=== PATIENT | male | born 1990 | race Caucasian/White ===

== ENCOUNTER 2017-10-07 07:15 | Inpatient (IN) | payer BC ==
[2017-10-07 07:44] LABS: #Eosinphils 0.1 thou/uL (0.0-0.7); #Lymphocytes 1.6 thou/uL (1.20-3.40); #Monocytes 0.6 thou/uL (0.11-0.59); #Neutrophils 8.7 thou/uL (1.40-6.50); %Basophils 0.3 % (0.0-1.0); %Eosinophils 0.6 % (0.0-10.0); %Lymphocytes 14.4 % (21.0-51.0); %Monocytes 5.7 % (0.0-10.0); Hematocrit 49.8 % (42.0-52.0); Mean Platelet Volume 7.1 fL (7.4-10.4); Red Blood Cell (RBC) Count 5.58 mill/uL (4.70-6.10)
[2017-10-07 08:03] LABS: ALT (SGPT) 27 U/L (8-55); AST (SGOT) 16 U/L (5-34); Alkaline Phosphatase 125 U/L (40-150); Anion Gap 21 mmol/L (10-20); BUN (Urea Nitrogen) 20 mg/dL (8.9-20.6); Bilirubin, Total 0.8 mg/dL (0.2-1.2); Calc. Creatinine Clearance 0 mL/min (70-130); Calcium 9.9 mg/dL (7.8-10.44); Carbon Dioxide 17 mmol/L (22-29); Chloride 97 mmol/L (98-107); Estimated GFR-MDRD 53; Globulin 3.8 g/dL (2.4-3.5); Protein, Total 8.1 g/dL (6.0-8.3)
[2017-10-07] MEDS ORDERED: Insulin Regular 300 UNITS/3 ML VIAL ONE (08:23)
[2017-10-07] MEDS ORDERED: Potassium Chloride 20 MEQ TAB ONE (08:28)
[2017-10-07] MEDS ORDERED: NS 0.9% w/ 40 MEQ KCL 1,000 ML IV SCH (08:30)
[2017-10-07 08:41] LABS: Bilirubin Negative (Negative); Blood, Urine Negative (Negative); Glucose, Urine (Dipstick) >=1000 mg/dL (Negative); Ketone, Urine 80 mg/dL (Negative); Nitrite Negative (Negative); Protein, Urine (Dipstick) Negative (Neg-Trace); Urobilinogen 0.2 mg/dL (0.2-1.0)
[2017-10-07 09:39] LABS: Troponin I Less than 0.010 ng/mL (< 0.028)
--- NOTE | 2017-10-07 09:53 | HP ---
DATE OF ADMISSION: 10/07/2017 PRIMARY CARE PHYSICIAN: In [place]. He is unable to recall the name of the primary care physicchristopher sandi. CHIEF COMPLAINT: Nausea, vomiting. HISTORY OF PRESENT ILLNESS: Patient is a 26-year-old male with type 1 diabetes who presented to the emergency room with above complaints. The patient woke up at 3:00 a.m. with nausea and vomiting. He had a total of 3 episodes since then. The vomitus was nonbilious and did not contain blood. He denies any other complaints. He felt that he may be in DKA for which he took his morning dose of 20 Lantus along with 10 units of short-acting insulin. He had generalized body cramping as well. For this reason, he presented to the emergency room. No chest pain, palpitations, lightheadedness, dizziness, focal neurologic deficit, fever, chil ls, dysuria, hematuria or urgency reported. Patient has chronic diarrhea, which has not worsened rec ently. No sick contacts reported. In the emergency room, his initial vital signs showed temperature 97.9, respirations 16, pulse rate o f 114 with blood pressure of 117/76 with O2 saturation 99% on room air. His anion gap was 21 with bi carbonate 17 with ketones of 5.96. He received 3 liters IV fluid bolus in the emergency room. Initi al blood glucose was 478. PAST MEDICAL HISTORY: 1. Diabetes mellitus type 1. 2. Asthma, mild intermittent. 3. History of DKA in the past, the last being in March of this year. PAST SURGICAL HISTORY: Reviewed with the patient and none. ALLERGIES: CODEINE. CURRENT HOME MEDICATIONS: 1. Lantus 20 units b.i.d. with sliding scale. 2. Lisinopril 2.5 mg daily. FAMILY HISTORY: Maternal grandmother with colon cancer. SOCIAL HISTORY: He denies any smoking, alcohol or drug use. REVIEW OF SYSTEMS: The following complete review of systems was negative, unless otherwise mentioned in the HPI or below: Constitutional: Weight loss or gain, ability to conduct usual activities. Skin: Rash, itching. Eyes: Double vision, pain. ENT/Mouth: Nose bleeding, neck stiffness, pain, tenderness. Cardiovascular: Palpitations, dyspnea on exertion, orthopnea. Respiratory: Shortness of breath, wheezing, cough, hemoptysis, fever or night sweats. Gastrointestinal: Poor appetite, abdominal pain, heartburn, nausea, vomiting, constipation, or diarr hea. Genitourinary: Urgency, frequency, dysuria, nocturia. Musculoskeletal: Pain, swelling. Neurologic/Psychiatric: Anxiety, depression. Allergy/Immunologic: Skin rash, bleeding tendency. PHYSICAL EXAMINATION: VITAL SIGNS: As discussed above. GENERAL: A 26-year-old male in no apparent distress. Feels generally weak. HEENT: Head is atraumatic, normocephalic. Sclerae are anicteric. Dry mucous membrane, no oral lesi on. NECK: Supple, no JVD appreciated. No carotid bruit. LUNGS: Clear to auscultation bilaterally. HEART: S1, S2 present. Regular rate and rhythm. No murmur, rubs, or gallops appreciated. ABDOMEN: Soft, nontender, bowel sounds present. EXTREMITIES: No edema or calf tenderness. NEUROLOGIC: Grossly nonfocal, moves all four extremities. PSYCHIATRY: Alert, awake, oriented x3. SKIN: Warm and dry. LYMPH NODES: No palpable lymph nodes in the neck. PERIPHERAL VASCULAR: Radial pulses palpable bilaterally. MUSCULOSKELETAL: No joint swelling or tenderness. LABORATORY FINDINGS AND IMAGIN. CBC showed WBC 11 with hemoglobin 16.8, platelet of 220. 2. Chemistries showed sodium 131, potassium 3.8, chloride 97, bicarbonate 17, BUN of 20, creatinine 1.59, glucose of 478. LFTs in normal range. Ketones 5.96. 3. Urinalysis was negative for WBC or bacteria. It showed ketones. 4. EKG by my review showed sinus rhythm without any ST-T wave changes. IMPRESSION: 1. Diabetic ketoacidosis. Partially treated. The patient already took his Lantus 20 units along wi th 10 units of short-acting insulin earlier this morning. 2. Dehydration with acute kidney injury. 3. Chronic diarrhea. 4. Metabolic acidosis secondary to diabetic ketoacidosis. 5. CODEINE allergy. 6. History of diabetes mellitus type 1. 7. Nausea and vomiting, probably secondary to diabetic ketoacidosis. PLAN: The patient will be monitored on the medical floor. We will continue IV fluids. We will do A ccu-Cheks every 4 hourly with moderate sliding scale. Continue Lantus. Start with clear liquid diet and advance accordingly. We will repeat labs and ketones later today. Plan of care was discussed with the patient in detail. He stated understanding.
[2017-10-07 10:39] VITALS: BMI 21.7
[2017-10-07] MEDS ORDERED: Acetaminophen 325 MG TAB PO PRN (10:47)
[2017-10-07] MEDS ORDERED: hydrALAZINE 20 MG/ML VIAL SLOW IVP PRN (10:47)
[2017-10-07] MEDS ORDERED: Ondansetron ODT 4 MG TAB PO PRN (10:47)
[2017-10-07] MEDS ORDERED: Dextrose 5% in Water 1,000 ML IV PRN (10:47)
[2017-10-07] MEDS ORDERED: Ondansetron HCl/PF 4 MG/2 ML Vial IVP PRN (10:47)
[2017-10-07] MEDS ORDERED: Dextrose 50% Abboject 50 ML SYRINGE SLOW IVP PRN (10:47)
[2017-10-07] MEDS ORDERED: cloNIDine 0.1 MG TAB PO PRN (10:47)
[2017-10-07 10:57] LABS: Magnesium 2.2 mg/dL (1.6-2.6); Phosphorus 2.4 mg/dL (2.3-4.7)
[2017-10-07] MEDS: Insulin Regular 300 UNITS/3 ML VIAL SC PRN ×4 (12:14→23:56)
[2017-10-07] MEDS: NS 0.9% w/ 20 MEQ KCL 1,000 ML/1,000 ML BAG IV SCH ×2 (12:14→17:54)
[2017-10-07] MEDS ORDERED: FLU VACC QS2017-18 36 mo. & older 0.5 ML SYRINGE IM ONE (14:00)
[2017-10-07 16:39] LABS: Anion Gap 11 mmol/L (10-20); BUN (Urea Nitrogen) 13 mg/dL (8.9-20.6); Calc. Creatinine Clearance 109 mL/min (70-130); Calcium 8.1 mg/dL (7.8-10.44); Carbon Dioxide 21 mmol/L (22-29); Chloride 109 mmol/L (98-107); Estimated GFR-MDRD 87
[2017-10-07] MEDS: Sodium Chloride 0.45% 1,000 ML IV SCH ×2 (17:20→23:56)
[2017-10-07] MEDS: Famotidine 20 MG TAB PO SCH (20:37)
[2017-10-07] MEDS: Insulin Detemir 100 UNITS/ML 15 UNITS in Pre-Filled Syringe 1 EACH SC SCH (21:51)
[2017-10-08 05:47] VITALS: TEMP 97.6
[2017-10-08 06:08] LABS: #Eosinphils 0.2 thou/uL (0.0-0.7); #Lymphocytes 2.8 thou/uL (1.20-3.40); #Monocytes 0.4 thou/uL (0.11-0.59); #Neutrophils 2.6 thou/uL (1.40-6.50); %Basophils 0.8 % (0.0-1.0); %Eosinophils 3.3 % (0.0-10.0); %Lymphocytes 46.6 % (21.0-51.0); %Monocytes 6.9 % (0.0-10.0); Hematocrit 39.5 % (42.0-52.0); Mean Platelet Volume 6.5 fL (7.4-10.4); Red Blood Cell (RBC) Count 4.42 mill/uL (4.70-6.10)
[2017-10-08 06:31] LABS: Anion Gap 6 mmol/L (10-20); BUN (Urea Nitrogen) 9 mg/dL (8.9-20.6); Calc. Creatinine Clearance 135 mL/min (70-130); Calcium 8.4 mg/dL (7.8-10.44); Carbon Dioxide 25 mmol/L (22-29); Chloride 110 mmol/L (98-107); Estimated GFR-MDRD Greater than 90; Magnesium 1.6 mg/dL (1.6-2.6); Phosphorus 2.7 mg/dL (2.3-4.7)
[2017-10-08] MEDS: Sodium Chloride 0.45% 1,000 ML IV SCH (06:47)
[2017-10-08 07:59] VITALS: BP 96/54
[2017-10-08] MEDS ORDERED: Insulin Regular 300 UNITS/3 ML VIAL SC PRN (08:00)
[2017-10-08] MEDS ORDERED: Potassium Chloride 20 MEQ TAB PO SCH (08:00)
[2017-10-08] MEDS ORDERED: Sodium Chloride 0.45% 1,000 ML IV SCH (08:01)
[2017-10-08] MEDS: Famotidine 20 MG TAB PO SCH (08:49)
[2017-10-08] MEDS: Insulin Detemir 100 UNITS/ML 15 UNITS in Pre-Filled Syringe 1 EACH SC SCH (08:50)
--- NOTE | 2017-10-08 10:22 | DIS ---
DATE OF DISCHARGE: 10/08/2017 DISCHARGE DISPOSITION: Home. FOLLOWUP: Follow up with primary care physician, Dr. Lorrie Julien in [place]. Base met in 1 week is recommended. Primary care physician is advised to follow. INPATIENT CONSULTANTS: None. The patient was seen and examined on the day of discharge. SIGNIFICANT LABORATORIES: Ketones on admission 5.96, at discharge was 0.28. Anion gap on admission was 21, at discharge is 6, bicarbonate on admission was 17, at discharge 25. BRIEF HOSPITAL COURSE: The patient is a 26-year-old male with diabetes mellitus type 1, presented to the hospital with nausea and vomiting. His workup was consistent with diabetic ketoacidosis. He olsen d taken his morning insulin (20 units of Lantus with sliding scale). Due to partially treated diabet ic ketoacidosis the decision was made to manage him on the medical floor with IV fluids as well as a subcutaneous insulin q.4h. Over the last 24 hours, his nausea, vomiting, and acidosis has completely resolved. His anion gap today it is normal with bicarbonate in normal range. He also had some hypo kalemia that has been replaced. He appears stable for discharge. He was advised to monitor his bloo d sugar closely and not to miss any insulin dose. The diabetic ketoacidosis probably happened due to missed dose of Lantus the day before admission. FINAL DIAGNOSES: 1. Diabetic ketoacidosis, resolved. 2. Dehydration with acute kidney injury. His creatinine on admission was 1.59, at discharge is 0.84 . 3. Hypokalemia, replaced. 4. Chronic diarrhea. Primary care physician is advised to follow. Stool for ova and parasite was o rdered; however, the patient never had a bowel movement. 5. Metabolic acidosis secondary to diabetic ketoacidosis. 6. History of diabetes mellitus type 1. 7. Nausea and vomiting secondary to diabetic ketoacidosis. 8. CODEINE allergy. 9. No changes in his home medications were made. He will continue with Lantus 20 units b.i.d. with sliding scale as well as lisinopril 2.5 mg daily. The plan of care was discussed with the patient in detail. He stated understanding.
== END 2017-10-08 10:47 | disposition home or self-care (01) | DRG 638 ==
LOC: ERS 07:15 → ONC 08:42
PROVIDERS: ADMIT Internal Medicine; ATTEND Internal Medicine
DX: E10.10 Type 1 diabetes mellitus with ketoacidosis without coma (principal); N17.9 Acute kidney failure, unspecified; E86.0 Dehydration; E87.6 Hypokalemia; K52.9 Noninfective gastroenteritis and colitis, unspecified; J45.20 Mild intermittent asthma, uncomplicated; Z79.4 Long term (current) use of insulin; Z23 Encounter for immunization
CPT/HCPCS: 36415; 36416; 80048; 80053; 81003; 82010; 83735; 84100; 84484; 85025; 93005; 96361; 96374; J1815

== ENCOUNTER 2017-10-14 21:14 | Inpatient (IN) | payer BC ==
[2017-10-14 21:59] LABS: Base Excess-Venous -10.1 mmol/L (-30.0-30.0); Bicarbonate (HCO3v) 14.1 mmol/L (1.0-85.0); CO2 Tension (PvCO2) 27.8 mmHg (41.0-51.0); Calcium, Ionized 1.15 mmol/L (1.12-1.32); Hemoglobin - Calc 18.1 g/dL (12.0-18.0); O2 Tension (PvO2) 22.2 mmHg (35.0-45.0); Potassium 3.8 mmol/L (3.4-4.7); pH (Venous) 7.314 (7.35-7.45); vO2 Saturation-calc 34.2 % (0.0-100.0)
--- NOTE | 2017-10-14 22:01 | RAD ---
PORTABLE CHEST: 10/14/17 HISTORY: Chest pain. COMPARISON: None. Heart size and mediastinum are within normal limits. The lungs are clear of infiltrates. No significa nt bony findings. IMPRESSION: No active intrathoracic disease. POS: [facility]
[2017-10-14 22:15] LABS: #Lymphocytes 1.7 thou/uL (1.20-3.40); #Monocytes 0.7 thou/uL (0.11-0.59); #Neutrophils 6.1 thou/uL (1.40-6.50); %Basophils 0.2 % (0.0-1.0); %Eosinophils 0.5 % (0.0-10.0); %Lymphocytes 20.1 % (21.0-51.0); %Monocytes 7.8 % (0.0-10.0); %Neutrophils 71.5 % (42.0-75.0); Hemoglobin 17.6 g/dL (14.0-18.0); Mean Corpuscular HGB CONC 34.2 g/dL (32.0-36.0); Mean Corpuscular Hemoglobin 29.7 pg (27.0-31.0); Mean Corpuscular Volume 86.9 fl (80.0-94.0); Mean Platelet Volume 6.6 fL (7.4-10.4); Platelet Count 252 thou/uL (130-400); RBC Distribution Width 11.3 % (11.5-14.5); Red Blood Cell (RBC) Count 5.92 mill/uL (4.70-6.10); White Blood Cell (WBC) Count 8.6 thou/uL (4.8-10.8)
[2017-10-14 22:37] LABS: ALT (SGPT) 12 U/L (8-55); AST (SGOT) 8 U/L (5-34); Albumin 4.4 g/dL (3.5-5.0); Alkaline Phosphatase 94 U/L (40-150); Anion Gap 25 mmol/L (10-20); BUN (Urea Nitrogen) 22 mg/dL (8.9-20.6); Bilirubin, Total 1.3 mg/dL (0.2-1.2); Calc. Creatinine Clearance 0 mL/min (70-130); Carbon Dioxide 15 mmol/L (22-29); Chloride 94 mmol/L (98-107); Estimated GFR-MDRD 48; Globulin 3.9 g/dL (2.4-3.5); Glucose 358 mg/dL (70-105); Potassium 3.8 mmol/L (3.5-5.1); Protein, Total 8.3 g/dL (6.0-8.3); Sodium 130 mmol/L (136-145)
[2017-10-14 22:55] LABS: Bilirubin Negative (Negative); Blood, Urine Negative (Negative); Clarity CLEAR (Clear); Glucose, Urine (Dipstick) >=1000 mg/dL (Negative); Leukocyte Negative (Negative); Nitrite Negative (Negative); Protein, Urine (Dipstick) Negative (Neg-Trace); Specific Gravity, Urine 1.034 (1.002-1.036); Urobilinogen 0.2 mg/dL (0.2-1.0)
[2017-10-14] MEDS ORDERED: Insulin Regular 300 UNITS/3 ML VIAL ONE (22:58)
[2017-10-15] MEDS ORDERED: Acetaminophen 500 MG TAB ONE (01:36)
[2017-10-15 01:53] LABS: ALT (SGPT) 10 U/L (8-55); AST (SGOT) 6 U/L (5-34); Albumin 3.5 g/dL (3.5-5.0); Alkaline Phosphatase 67 U/L (40-150); Anion Gap 20 mmol/L (10-20); BUN (Urea Nitrogen) 21 mg/dL (8.9-20.6); Bilirubin, Total 0.8 mg/dL (0.2-1.2); Calc. Creatinine Clearance 0 mL/min (70-130); Calcium 8.9 mg/dL (7.8-10.44); Carbon Dioxide 15 mmol/L (22-29); Chloride 103 mmol/L (98-107); Estimated GFR-MDRD 67; Globulin 2.9 g/dL (2.4-3.5); Glucose 244 mg/dL (70-105); Potassium 3.4 mmol/L (3.5-5.1); Protein, Total 6.4 g/dL (6.0-8.3); Sodium 135 mmol/L (136-145)
[2017-10-15] MEDS ORDERED: Ketorolac Tromethamine 30 MG/ML VIAL ONE (01:53)
[2017-10-15 03:47] VITALS: BMI 19.5
[2017-10-15] MEDS ORDERED: Dextrose 5% in Water 1,000 ML IV PRN ×2 (04:12→04:17)
[2017-10-15] MEDS ORDERED: Insulin Regular 300 UNITS/3 ML VIAL SC PRN (04:12)
[2017-10-15] MEDS ORDERED: Dextrose 50% Abboject 50 ML SYRINGE IVP PRN ×2 (04:12→04:17)
[2017-10-15] MEDS ORDERED: Sodium Chloride 0.9% 1,000 ML IV SCH (04:15)
[2017-10-15] MEDS ORDERED: HumaLOG 300 UNITS/3 ML VIAL SC PRN (04:17)
[2017-10-15] MEDS ORDERED: Insulin Detemir 100 UNITS/ML 10 UNITS in Pre-Filled Syringe 1 EACH SC SCH (04:30)
[2017-10-15] MEDS ORDERED: Acetaminophen 325 MG TAB PO PRN (07:31)
[2017-10-15] MEDS ORDERED: Artificial Tears 18 DROP/0.9 ML EA EYE PRN (07:31)
[2017-10-15] MEDS ORDERED: Loperamide HCl 2 MG CAP PO PRN (07:31)
[2017-10-15] MEDS ORDERED: Sodium Chloride 0.65% Nasal 44 ML BOT EA NARE PRN (07:31)
[2017-10-15] MEDS ORDERED: Chloraseptic Spray 180 ml Bottle PO PRN (07:31)
[2017-10-15] MEDS ORDERED: Milk Of Magnesia 30 ML UDCUP PO PRN (07:31)
[2017-10-15] MEDS ORDERED: Ondansetron HCl/PF 4 MG/2 ML Vial IVP PRN (07:31)
[2017-10-15] MEDS ORDERED: Diabetic Tussin 200 MG/10 ML UDCUP PO PRN (07:31)
[2017-10-15] MEDS ORDERED: hydrALAZINE 20 MG/ML VIAL SLOW IVP PRN (07:31)
[2017-10-15] MEDS ORDERED: Loratadine 10 MG TAB PO PRN (07:31)
[2017-10-15] MEDS ORDERED: Zolpidem Tartrate 5 MG TAB PO PRN (07:31)
[2017-10-15] MEDS ORDERED: Eucerin (Mineral Oil/Petrolatum,White) 30 gm Jar TOP PRN (07:31)
[2017-10-15] MEDS ORDERED: Senokot 8.6 MG TAB PO PRN (07:31)
[2017-10-15] MEDS ORDERED: Ondansetron ODT 4 MG TAB PO PRN (07:31)
[2017-10-15] MEDS ORDERED: Mag-Al 1200 mg/1200 mg/30 ML UDCUP PO PRN (07:31)
[2017-10-15] MEDS ORDERED: Non-Formulary Item 1 EACH (Insulin Glargine,Hum.Rec.Anlog 20 UNIT) SQ SCH (09:00)
[2017-10-15] MEDS: Enoxaparin Sodium 40 MG/0.4 ML SYRINGE SC SCH (09:06)
[2017-10-15] MEDS: Lisinopril 2.5 MG TAB PO SCH (09:06)
[2017-10-15] MEDS: Famotidine 20 MG TAB PO SCH ×2 (09:06→21:05)
[2017-10-15] MEDS: Insulin Detemir 100 UNITS/ML 20 UNITS in Pre-Filled Syringe 1 EACH SC SCH ×2 (09:22→21:05)
[2017-10-15 13:00] LABS: Bilirubin Small (Negative); Blood, Urine Negative (Negative); Clarity CLEAR (Clear); Glucose, Urine (Dipstick) >=1000 mg/dL (Negative); Leukocyte Negative (Negative); Nitrite Negative (Negative); Protein, Urine (Dipstick) Trace mg/dL (Neg-Trace); Specific Gravity, Urine 1.034 (1.002-1.036)
[2017-10-15 13:05] LABS: Bacteria/HPF None Seen HPF (None Seen); Hyaline Casts/LPF 0-3 HYALINE CAST LPF (0-3 Hyaline); Pathc Cast-AUWi Flag 0.27 (0-2.49); RBC/HPF 0-3 HPF (0-3); Squamous Epithelial None Seen HPF (0-3); WBC/HPF 0-3 HPF (0-3)
--- NOTE | 2017-10-15 13:19 | HP ---
PRIMARY CARE PHYSICIAN: [place] call admission. REASON FOR ADMISSION: Nausea, vomiting, flu-like illness, hyperglycemia, ketosis. HISTORY OF PRESENT ILLNESS: A 26-year-old male with a history of diabetes type 1 on insulin, who was recently admitted in our hospital for DKA. He was admitted on 10/07/2017 and he was discharged home on 10/08/2017. The patient came back again to the emergency room, because he was having generalized body ache, headache, nausea, vomiting and he was not able to keep anything down for the last 3 days. He was also having runny nose, sore throat. He denies any fever or chills, but he reports fatigue and shortness of breath. In the emergency room, routine blood tests showed ketosis. He also appeared clinically dehydrated. He was given IV fluid and subsequently he was admitted to medical floor overnight. When I saw this patient in the morning, at that time, patient was comfortable and he was still having body ache and headache, but no fever. He was able to hold breakfast. He was not having any shortne ss of breath or chest pain. REVIEW OF SYSTEMS: The following complete review of systems was negative, unless otherwise mentioned in the HPI or below: Constitutional: Weight loss or gain, ability to conduct usual activities. Skin: Rash, itching. Eyes: Double vision, pain. ENT/Mouth: Nose bleeding, neck stiffness, pain, tenderness. Cardiovascular: Palpitations, dyspnea on exertion, orthopnea. Respiratory: Shortness of breath, wheezing, cough, hemoptysis, fever or night sweats. Gastrointestinal: Poor appetite, abdominal pain, heartburn, nausea, vomiting, constipation, or diarr hea. Genitourinary: Urgency, frequency, dysuria, nocturia. Musculoskeletal: Pain, swelling. Neurologic/Psychiatric: Anxiety, depression. Allergy/Immunologic: Skin rash, bleeding tendency. Please see my HPI for pertinent positives and negatives. All other review of system reviewed and neg ative except as mentioned in the HPI. PAST MEDICAL HISTORY: Diabetes type 1, mild intermittent asthma, history of DKA. PAST SURGICAL HISTORY: Reviewed and negative. PAST PSYCHIATRIC HISTORY: Reviewed and negative. ALLERGIES: CODEINE gives nausea. CURRENT HOME MEDICATIONS: The patient was discharged home on following medications: NovoLog insulin as per sliding scale, Lantus 20 units subcu b.i.d., lisinopril 2.5 mg p.o. daily. FAMILY HISTORY: Maternal grandmother with a history of colon cancer. No strong family history of co ronary artery disease or stroke. SOCIAL HISTORY: Patient lives at home with the family. No history of tobacco, alcohol or illicit dr ug abuse. EMERGENCY ROOM COURSE: Patient was given Toradol 50 mg, Tylenol 1 gram, Novolin R 6 units and 2 lite r IV fluid. PHYSICAL EXAMINATION: VITAL SIGNS: On arrival, blood pressure 109/80, pulse 112, respiratory rate 16, temperature 98.0, sa turation 98% on room air, weight 63.5 kilograms. GENERAL: Patient appears poorly groomed, no obvious acute distress. HEAD: Normocephalic, atraumatic. EYES: Pupils round, reactive to light. Extraocular muscles intact. ENT: Somewhat dry appearing mucous membranes. No oral lesions. No pharyngeal erythema, no exudate. NECK: Supple, no JVD, no thyromegaly, no carotid bruit, no jugular venous distention. LUNGS: Clear to auscultation without any rhonchi or rales. CARDIAC: S1, S2 regular without any murmur. ABDOMEN: Soft, bowel sounds present, nontender, nondistended. No organomegaly, no mass, no suprapub ic tenderness. BACK: Unremarkable. No CVA tenderness. EXTREMITIES: Upper extremity, passive movement of all joints are normal. Lower extremity, no edema . Good peripheral pulsation. SKIN: No skin rash. HEMATOLOGICAL: No lymphadenopathy. NEUROLOGIC: Nonfocal examination. The patient moves all 4 limbs. Plantar bilateral flexor. PSYCHIATRIC: Normal affect. IMAGING: EKG showing sinus tachycardia, biatrial enlargement, nonspecific ST-T changes. Chest x-ray based on my review, no acute cardiopulmonary process. SIGNIFICANT LABORATORY DATA: 1. WBC 8.6, hemoglobin 17.6, platelet 252. VBG: pH 7.31, bicarbonate 14.1, CO2 27.8, O2 22.2. 2. BMP shows sodium 130, potassium 3.8, chloride 94, carbon dioxide 15, anion gap 25, BUN 22, creati nine 1.73, glucose 358, calcium 10.0. 3. LFT: AST 8, ALT 12, alkaline phosphatase 94, albumin 4.4. Lactic acid 2.0. Urinalysis showing glucosuria and ketonuria. Serum ketones 8.68. ASSESSMENT: 1. Acute kidney failure due to prerenal etiology secondary to dehydration, because of nausea and vom iting and poor p.o. tolerance. 2. Hyponatremia likely due to dehydration as well as pseudohyponatremia from hyperglycemia. 3. Hyperglycemia associated with type 1 diabetes, because of inability to take long-acting insulin b ecause the patient was not tolerating p.o. intake and that is why he was not taking by himself insuli n. 4. Mild anion gap acidosis, likely due to ketosis. 5. Ketosis likely due to poor p.o. intolerance as well as hyperglycemia. 6. Generalized body ache, nausea, vomiting, viral syndrome. Influenza screen negative. PLAN: 1. Full admission to medical floor. Patient will need IV fluid and NS at 100 mL per hour. We will start diabetic diet. We will continue with Levemir insulin and Humalog insulin as per sliding scale per protocol. We will also resume lisinopril 2.5 mg p.o. daily. We will repeat labs tomorrow. We w ill check respiratory virus panel to rule out any other viral etiologies. 2. Deep venous thrombosis prophylaxis. Lovenox 40 mg subcutaneously daily. 3. Gastrointestinal prophylaxis. Pepcid 20 mg p.o. b.i.d. 4. Code status: The patient is FULL CODE. Patient does not have any surrogate decision maker. The patient will need symptomatic treatment, hydration and monitoring of labs and adjustment of insulin regimen.
[2017-10-15] MEDS: NS 0.9% w/ 20 MEQ KCL 1,000 ML/1,000 ML BAG IV SCH (15:04)
[2017-10-16] MEDS: NS 0.9% w/ 20 MEQ KCL 1,000 ML/1,000 ML BAG IV SCH ×3 (00:22→18:23)
[2017-10-16 04:41] LABS: ALT (SGPT) 8 U/L (8-55); AST (SGOT) 8 U/L (5-34); Albumin 3.1 g/dL (3.5-5.0); Alkaline Phosphatase 62 U/L (40-150); Anion Gap 12 mmol/L (10-20); BUN (Urea Nitrogen) 9 mg/dL (8.9-20.6); Bilirubin, Total 0.5 mg/dL (0.2-1.2); Calc. Creatinine Clearance 107 mL/min (70-130); Calcium 8.5 mg/dL (7.8-10.44); Carbon Dioxide 22 mmol/L (22-29); Chloride 104 mmol/L (98-107); Estimated GFR-MDRD Greater than 90; Globulin 2.6 g/dL (2.4-3.5); Glucose 72 mg/dL (70-105); Potassium 3.1 mmol/L (3.5-5.1); Protein, Total 5.7 g/dL (6.0-8.3); Sodium 135 mmol/L (136-145)
[2017-10-16 04:47] LABS: #Eosinphils 0.2 thou/uL (0.0-0.7); #Lymphocytes 2.2 thou/uL (1.20-3.40); #Monocytes 0.8 thou/uL (0.11-0.59); #Neutrophils 4.9 thou/uL (1.40-6.50); %Basophils 0.2 % (0.0-1.0); %Eosinophils 2.6 % (0.0-10.0); %Lymphocytes 26.6 % (21.0-51.0); %Monocytes 9.6 % (0.0-10.0); Hemoglobin 14.4 g/dL (14.0-18.0); Mean Corpuscular Hemoglobin 31.1 pg (27.0-31.0); Mean Corpuscular Volume 86.5 fl (80.0-94.0); Mean Platelet Volume 5.8 fL (7.4-10.4); Platelet Count 199 thou/uL (130-400); RBC Distribution Width 11.3 % (11.5-14.5); Red Blood Cell (RBC) Count 4.63 mill/uL (4.70-6.10); White Blood Cell (WBC) Count 8.1 thou/uL (4.8-10.8)
[2017-10-16 07:56] LABS: Magnesium 1.6 mg/dL (1.6-2.6)
[2017-10-16] MEDS ORDERED: Potassium Phosphate 30 MMOL in Sodium Chloride 0.9% 500 ML IVPB SCH (08:00)
[2017-10-16] MEDS ORDERED: Potassium Chloride 20 MEQ TAB PO SCH (08:00)
[2017-10-16] MEDS: Famotidine 20 MG TAB PO SCH ×2 (09:04→21:29)
[2017-10-16] MEDS: Lisinopril 2.5 MG TAB PO SCH (09:14)
[2017-10-16] MEDS: Enoxaparin Sodium 40 MG/0.4 ML SYRINGE SC SCH (09:14)
[2017-10-16] MEDS: Insulin Detemir 100 UNITS/ML 20 UNITS in Pre-Filled Syringe 1 EACH SC SCH (09:37)
--- NOTE | 2017-10-16 10:27 | PDOC.PN ---
- Subjective Encounter Start Date: 10/16/17 Encounter Start Time: 09:40 still feels weak, has sore throat, no fever, nausea+, poor apetitie - Objective Resuscitation Status: Resuscitation Status FULL:Full Resuscitation MAR Reviewed: Yes Vital Signs & Weight: Vital Signs (12 hours) Temp Pulse Resp BP BP Pulse Ox 10/16/17 09:14 80 119/76 10/16/17 07:59 98.3 F 80 20 119/76 98 10/16/17 04:00 98.1 F 87 16 117/77 99 10/16/17 00:00 98.0 F 89 16 122/76 100 Weight Weight 140 lb Result Diagrams: 10/16/17 04:12 10/16/17 04:12 Additional Labs: Accuchecks 10/15/17 10/15/17 10/15/17 16:12 11:21 03:27 POC Glucose 138 H 222 H 288 H Phys Exam - Physical Examination Constitutional: NAD HEENT: PERRLA, moist MMs, sclera anicteric Neck: no JVD, supple Respiratory: no wheezing, no rales, no rhonchi Cardiovascular: RRR, no significant murmur, no rub Gastrointestinal: soft, non-tender, no distention, positive bowel sounds Musculoskeletal: no edema, pulses present Neurological: non-focal, normal sensation, moves all 4 limbs Psychiatric: normal affect, A&O x 3 Skin: no rash, normal turgor Dx/Plan (1) Acute kidney failure Status: Resolved (2) Dehydration Code(s): E86.0 - DEHYDRATION Status: Acute Comment: (3) Flu-like symptoms Status: Acute (4) Hypokalemia Code(s): E87.6 - HYPOKALEMIA Status: Acute (5) Hypophosphatemia Code(s): E83.39 - OTHER DISORDERS OF PHOSPHORUS METABOLISM Status: Acute (6) Ketosis Code(s): E88.89 - OTHER SPECIFIED METABOLIC DISORDERS Status: Acute (7) Nausea and vomiting Code(s): R11.2 - NAUSEA WITH VOMITING, UNSPECIFIED Status: Acute (8) Diabetes type 1, uncontrolled Code(s): E10.65 - TYPE 1 DIABETES MELLITUS WITH HYPERGLYCEMIA Status: Chronic Qualifiers: - Plan cont current plan of care * medication reviewed as below * symptomatic treatment * replace potassium phosphate * reduce levemir dose * will reassess tomorrow * if he eats good and ambulates well, then will consider discharge. Review of Systems - Review of Systems Constitutional: weakness. negative: fever, chills, sweats, malaise, other ENT: Throat Pain. negative: Ear Pain, Ear Discharge, Nose Pain, Nose Discharge , Nose Congestion, Mouth Pain, Mouth Swelling, Throat Swelling, Other Respiratory: negative: Cough, Dry, Shortness of Breath, Hemoptysis, SOB with Excertion, Pleuritic Pain, Sputum, Wheezing Cardiovascular: negative: chest pain, palpitations, orthopnea, paroxysmal nocturnal dyspnea, edema, light headedness, other Gastrointestinal: Nausea. negative: Vomiting, Abdominal Pain, Diarrhea, Constipation, Melena, Hematochezia, Other Genitourinary: negative: Dysuria, Frequency, Incontinence, Hematuria, Retention , Other Musculoskeletal: negative: Neck Pain, Shoulder Pain, Arm Pain, Back Pain, Hand Pain, Leg Pain, Foot Pain, Other Skin: negative: Rash, Lesions, Ryan, Bruising, Other - Medications/Allergies Allergies/Adverse Reactions: Allergies Allergy/AdvReac Type Severity Reaction Status Date / Time codeine Allergy Verified 10/15/17 04:00 Medications: Current Medications Acetaminophen (Tylenol) 650 mg PO Q4H PRN PRN Reason: Headache/Fever or Mild Pain Al Hydroxide/Mg Hydroxide (Maalox) 15 ml PO Q4H PRN PRN Reason: Heartburn or Indigestion Artificial Tears (Tears Naturale) 0 drop EA EYE PRN PRN PRN Reason: Dry Eyes Dextrose/Water (Dextrose 50%) 25 gm IVP PRN PRN PRN Reason: HYPOGLYCEMIA PROTOCOL Enoxaparin Sodium (Lovenox) 40 mg SC 0900 [facility] Last Admin: 10/16/17 09:14 Dose: Not Given Famotidine (Pepcid) 20 mg PO BID [facility] Last Admin: 10/16/17 09:04 Dose: 20 mg Glucagon (Glucagon) 1 mg IM PRN PRN PRN Reason: HYPOGLYCEMIA PROTOCOL Guaifenesin (Robitussin Sf) 200 mg PO Q4H PRN PRN Reason: Cough Hydralazine HCl (Apresoline) 10 mg SLOW IVP Q4H PRN PRN Reason: Systolic BP > 180 Dextrose/Water (D5w) 1,000 mls @ 0 mls/hr IV INF PRN; As Directed PRN Reason: HYPOGLYCEMIA PROTOCOL Insulin Detemir 20 units/ (Miscellaneous Medication) 0.2 mls @ 0 mls/hr SC BID [facility] Last Admin: 10/16/17 09:37 Dose: Not Given Potassium Chloride/Sodium Chloride (Ns 0.9% W/ 20 Meq Kcl) 1,000 ml in 1,000 mls @ 100 mls/hr IV .Q10H [facility] Last Admin: 10/16/17 10:18 Dose: 1,000 mls Potassium Phosphate 30 mmol/ (Sodium Chloride) 510 mls @ 83.3 mls/hr IVPB 0800 [facility] Stop: 10/16/17 15:00 Last Admin: 10/16/17 09:01 Dose: 510 mls Insulin Human Lispro (Humalog) 0 units SC .MODERATE SLIDING SC PRN; Protocol PRN Reason: MODERATE SLIDING SCALE Lisinopril (Zestril) 2.5 mg PO DAILY [facility] Last Admin: 10/16/17 09:14 Dose: 2.5 mg Loperamide HCl (Imodium) 2 mg PO PRN PRN PRN Reason: Diarrhea/Loose Stools Last Admin: 10/16/17 10:17 Dose: 2 mg Loratadine (Claritin) 10 mg PO DAILYPRN PRN PRN Reason: Sinus Symptoms Magnesium Hydroxide (Milk Of Magnesium) 30 ml PO DAILYPRN PRN PRN Reason: Constipation Mineral Oil/White Petrolatum (Eucerin Cream) 0 gm TOP BIDPRN PRN PRN Reason: Dry Skin Ondansetron HCl (Zofran Odt) 4 mg PO Q6H PRN PRN Reason: Nausea/Vomiting Ondansetron HCl (Zofran) 4 mg IVP Q6H PRN PRN Reason: Nausea/Vomiting Phenol (Chloraseptic [place] 180 Ml Bot) 0 ml PO PRN PRN PRN Reason: Sore Throat Senna (Senokot) 2 tab PO HSPRN PRN PRN Reason: Constipation Sodium Chloride (Flush - Normal Saline) 10 ml IVF PRN PRN PRN Reason: Saline Flush Sodium Chloride ([place] Nasal [place] 0.65%) 0 ml EA NARE QIDPRN PRN PRN Reason: Nasal Congestion Zolpidem Tartrate (Ambien) 5 mg PO HSPRN PRN PRN Reason: Insomnia
[2017-10-16] MEDS ORDERED: Insulin Detemir 100 UNITS/ML 10 UNITS in Pre-Filled Syringe 1 EACH SC SCH (12:00)
[2017-10-16] MEDS: Insulin Detemir 100 UNITS/ML 10 UNITS in Pre-Filled Syringe 1 EACH SC SCH (21:28)
[2017-10-17] MEDS: NS 0.9% w/ 20 MEQ KCL 1,000 ML/1,000 ML BAG IV SCH (04:03)
[2017-10-17 08:06] LABS: Anion Gap 9 mmol/L (10-20); BUN (Urea Nitrogen) 7 mg/dL (8.9-20.6); Calc. Creatinine Clearance 103 mL/min (70-130); Calcium 8.9 mg/dL (7.8-10.44); Carbon Dioxide 26 mmol/L (22-29); Chloride 104 mmol/L (98-107); Estimated GFR-MDRD Greater than 90; Glucose 214 mg/dL (70-105); Phosphorus 2.8 mg/dL (2.3-4.7); Potassium 3.3 mmol/L (3.5-5.1); Sodium 136 mmol/L (136-145)
[2017-10-17 08:37] VITALS: BP 112/72; TEMP 98.1
[2017-10-17] MEDS ORDERED: Potassium Chloride 20 MEQ TAB PO SCH (09:00)
[2017-10-17] MEDS: Famotidine 20 MG TAB PO SCH (09:57)
[2017-10-17] MEDS: Insulin Detemir 100 UNITS/ML 10 UNITS in Pre-Filled Syringe 1 EACH SC SCH (09:57)
[2017-10-17] MEDS: Lisinopril 2.5 MG TAB PO SCH (09:57)
[2017-10-17] MEDS: Enoxaparin Sodium 40 MG/0.4 ML SYRINGE SC SCH (09:57)
--- NOTE | 2017-10-17 11:00 | DIS ---
PRIMARY CARE PHYSICIAN: Meera Hernandez. DATE OF ADMISSION: 10/15/2017 DATE OF DISCHARGE: 10/17/2017 DISCHARGE DISPOSITION: Home. PRIMARY DISCHARGE DIAGNOSES: 1. Acute kidney failure, prerenal, improved. 2. Nausea and vomiting, resolved. 3. Ketosis due to starvation from nausea and vomiting as well as diabetes. 4. Hypokalemia. 5. Hypophosphatemia. 6. Hyponatremia. 7. Dehydration. 8. Flu-like symptoms. SECONDARY DISCHARGE DIAGNOSIS: Diabetes type 1. PRIMARY PROCEDURE/OPERATION: None. RADIOLOGICAL INVESTIGATION: Chest x-ray was normal. SIGNIFICANT LABORATORY DATA: WBC 8.1, hemoglobin 14.4, platelets 199. Sodium 136, potassium 3.3, BU N 7, creatinine 0.98, calcium 8.9, phosphorus 2.8, magnesium 1.6. LFTs normal. Urinalysis showed gl ucosuria, ketonuria, serum ketones 1.55. Respiratory panel, PCR negative. Influenza A and B negativ e. DISCHARGE MEDICATIONS: The patient will resume all his previous medication, 1. NovoLog insulin as per sliding scale. 2. Lantus insulin 20 units subcu b.i.d. 3. Lisinopril 2.5 mg p.o. daily. CONTRAINDICATIONS: None. CODE STATUS: FULL CODE. INPATIENT CONSULTANTS: None. ALLERGIES: CODEINE. DISCHARGE PLAN: Post hospital, the patient will follow up with primary care physician in 1 week. HOSPITAL COURSE: A 26-year-old male with the above mentioned medical problem, who was admitted by me . Please see my HPI for further details. The patient was having flu-like symptoms including upper r espiratory infection with runny nose, sore throat, nausea and vomiting. The patient was not tolerati ng p.o. and that is why he was not taking insulin and that is why he had hyperglycemia. He had ketos is because he was not eating well because of nausea and vomiting. We admitted in the hospital to pre vent diabetic ketoacidosis. His VBG was not suggestive of any full-blown DKA, but he was having ania y DKA and that is why we admitted in hospital. We hydrated with IV fluid. We checked an influenza s creen, which was normal. Virus panel was also negative. All cultures remain negative. The patient had abnormal electrolytes with low sodium, low potassium, phosphorus, and magnesium, which was replac ed while in hospital. Today, the patient is tolerating p.o. well. He has no symptoms, all symptoms, why he presented to [facility] is completely controlled. He is knowing about his diabetes because it is a long history o f diabetes and he knows what to do about blood sugar. He already has all insulin at home. I provide d patient education about compliance with insulin and diet. This patient is at high risk for recurre nt admission. Today, the patient is seen and examined at bedside. All other review of systems reviewed with him an d negative. He was completely comfortable and eating his breakfast. PHYSICAL EXAMINATION: VITAL SIGNS: Temperature 98.1, pulse 81, respiratory rate 16, saturation 99%, blood pressure 112/72, and weight 140 pounds. GENERAL: The patient is currently alert, awake, in no acute distress. HEAD: Normocephalic, atraumatic. LUNGS: Clear to auscultation without any rhonchi or rales. CARDIAC: S1 and S2, regular, without any murmurs. ABDOMEN: Soft and benign without any tenderness. EXTREMITIES: No edema. NEUROLOGIC: Nonfocal examination. Overall, the patient is medically stable for discharge today.
== END 2017-10-17 11:38 | disposition home or self-care (01) | DRG 638 ==
LOC: ERS 21:14 → T4-A 10-15 01:40
PROVIDERS: ADMIT Internal Medicine; ATTEND Internal Medicine
DX: E10.10 Type 1 diabetes mellitus with ketoacidosis without coma (principal); N17.9 Acute kidney failure, unspecified; E87.1 Hypo-osmolality and hyponatremia; E83.39 Other disorders of phosphorus metabolism; Z79.4 Long term (current) use of insulin; E86.0 Dehydration; E87.6 Hypokalemia; F17.220 Nicotine dependence, chewing tobacco, uncomplicated; T73.0XXA Starvation, initial encounter; X58.XXXA Exposure to other specified factors, initial encounter
CPT/HCPCS: 36415; 36416; 71010; 80048; 80053; 81001; 81003; 82010; 82330; 82803; 83605; 83735; 84100; 85025; 87633; 87798; 93005; 96361; 96374; 96375; J1650; J1815; J1885; J2405; J7050

== ENCOUNTER 2018-01-04 18:45 | Inpatient (IN) | payer BC ==
[2018-01-04] MEDS ORDERED: Ondansetron HCl/PF 4 MG/2 ML Vial ONE (18:59)
[2018-01-04 19:23] LABS: Bicarbonate (HCO3v) 8.5 mmol/L (1.0-85.0); CO2 Tension (PvCO2) 23.1 mmHg (41.0-51.0); Calcium, Ionized 1.14 mmol/L (1.12-1.32); Hemoglobin - Calc 17.6 g/dL (12.0-18.0); O2 Tension (PvO2) 46.5 mmHg (35.0-45.0); Potassium 4.8 mmol/L (3.4-4.7); T. Carbon Dioxide 9.2 mmol/L (1.0-85.0); pH (Venous) 7.172 (7.35-7.45); vO2 Saturation-calc 72.1 % (94-98)
[2018-01-04 19:28] LABS: #Basophils 0.1 thou/uL (0.0-0.2); #Eosinphils 0.1 thou/uL (0.0-0.7); #Lymphocytes 1.2 thou/uL (1.20-3.40); #Monocytes 0.3 thou/uL (0.11-0.59); #Neutrophils 8.8 thou/uL (1.40-6.50); %Basophils 0.7 % (0.0-1.0); %Eosinophils 0.5 % (0.0-10.0); %Lymphocytes 11.5 % (21.0-51.0); %Monocytes 2.8 % (0.0-10.0); %Neutrophils 84.4 % (42.0-75.0); Hemoglobin 16.4 g/dL (14.0-18.0); Mean Corpuscular HGB CONC 33.5 g/dL (32.0-36.0); Mean Corpuscular Hemoglobin 30.3 pg (27.0-31.0); Mean Corpuscular Volume 90.5 fl (80.0-94.0); Mean Platelet Volume 6.7 fL (7.4-10.4); Platelet Count 260 thou/uL (130-400); RBC Distribution Width 11.3 % (11.5-14.5); White Blood Cell (WBC) Count 10.4 thou/uL (4.8-10.8)
[2018-01-04] MEDS ORDERED: Insulin Regular 300 UNITS/3 ML VIAL ONE (19:43)
[2018-01-04] MEDS ORDERED: Insulin Regular 100 units/100 ml in NS IVPB ONE (19:45)
[2018-01-04 19:52] LABS: ALT (SGPT) 25 U/L (8-55); AST (SGOT) 15 U/L (5-34); Albumin 4.6 g/dL (3.5-5.0); Alkaline Phosphatase 111 U/L (40-150); BUN (Urea Nitrogen) 14 mg/dL (8.9-20.6); Bilirubin, Total 0.7 mg/dL (0.2-1.2); Calc. Creatinine Clearance 0 mL/min (70-130); Calcium 9.9 mg/dL (7.8-10.44); Chloride 105 mmol/L (98-107); Estimated GFR-MDRD 49; Globulin 3.7 g/dL (2.4-3.5); Glucose 384 mg/dL (70-105); Lipase 13 U/L (8-78); Magnesium 1.8 mg/dL (1.6-2.6); Potassium 4.9 mmol/L (3.5-5.1); Protein, Total 8.3 g/dL (6.0-8.3); Sodium 136 mmol/L (136-145)
[2018-01-04 20:06] LABS: Carbon Dioxide Less than 8 mmol/L (22-29)
[2018-01-04 20:11] LABS: Bilirubin Negative (Negative); Blood, Urine Negative (Negative); Clarity CLEAR (Clear); Glucose, Urine (Dipstick) >=1000 mg/dL (Negative); Leukocyte Negative (Negative); Nitrite Negative (Negative); Protein, Urine (Dipstick) Trace mg/dL (Neg-Trace); Specific Gravity, Urine 1.025 (1.002-1.036); Urobilinogen 0.2 mg/dL (0.2-1.0); pH, Urine 5.5 (5.0-9.0)
--- NOTE | 2018-01-04 20:22 | RAD ---
PORTABLE UPRIGHT FRONTAL CHEST RADIOGRAPH: Date: 01-04-18 Comparison: 10-14-17 History: History Of diabetic keto acidosis, hyperglycemia, nausea, vomiting. FINDINGS: Heart and mediastinal contours are unremarkable. There is no pneumothorax, pleural fluid, focal conso lidation, or alveolar edema. IMPRESSION: No acute findings. POS: [facility]
[2018-01-04] MEDS ORDERED: Morphine 4 MG/ML VIAL ONE (20:55)
[2018-01-04] MEDS ORDERED: Dextrose 5% in Water 1,000 ML IV PRN (21:52)
[2018-01-04] MEDS ORDERED: D5 1/2 NS w/20 mEq KCL 1,000 ML IV PRN (21:52)
[2018-01-04] MEDS ORDERED: NS 0.9% w/ 20 MEQ KCL 1,000 ML/1,000 ML BAG IV PRN ×2 (21:52)
[2018-01-04] MEDS ORDERED: Dextrose 5 %-0.45 % NaCl 1,000 ML IV PRN ×2 (21:52→22:13)
[2018-01-04] MEDS ORDERED: Sodium Chloride 0.9% 1,000 ML IV PRN ×8 (21:52→22:13)
[2018-01-04] MEDS ORDERED: Dextrose 50% Abboject 50 ML SYRINGE SLOW IVP PRN (21:53)
[2018-01-04] MEDS ORDERED: Potassium Phosphate 15 MMOL in Sodium Chloride 0.9% 250 ML 250 ML IV PRN ×2 (21:57→22:22)
[2018-01-04] MEDS ORDERED: Potassium Phosphate 9 MMOL in Sodium Chloride 0.9% 100 ML IVPB PRN ×2 (21:57→22:22)
[2018-01-04] MEDS ORDERED: Potassium Chloride 40 MEQ in Premix Bag 1 BAG IVPB PRN ×2 (21:57→22:22)
[2018-01-04] MEDS ORDERED: Magnesium 2 GM/NS 0.9% 100 ML 2 GM in Premix Bag 1 BAG IVPB PRN ×2 (21:57→22:22)
[2018-01-04] MEDS ORDERED: Potassium Chloride 40 MEQ in Sodium Chloride 0.9% 250 ML 250 ML IVPB PRN ×2 (21:57→22:22)
[2018-01-04] MEDS ORDERED: Magnesium Oxide 400 MG TAB PO PRN ×4 (21:57→22:22)
[2018-01-04] MEDS ORDERED: CCU ELECTROLYTE REPLACEMENT PROTOCOL FS PRN ×2 (21:57→22:22)
[2018-01-04] MEDS ORDERED: Potassium Phosphate 12 MMOL in Sodium Chloride 0.9% 250 ML 250 ML IV PRN ×2 (21:57→22:22)
[2018-01-04] MEDS ORDERED: Potassium Chloride 20 MEQ TAB PO PRN ×2 (21:57→22:22)
[2018-01-04] MEDS ORDERED: ADD ELECTROLYTE REPLACEMENT SET TO PROFILE FS SCH (22:00)
[2018-01-04 22:07] VITALS: BMI 20.7
[2018-01-04] MEDS ORDERED: CCU Electrolyte Replacement 1 EACH IVPB ONE (22:13)
[2018-01-04] MEDS ORDERED: NS 0.9% w/ 20 MEQ KCL 1,000 ML IV PRN ×2 (22:13)
[2018-01-04 23:00] LABS: Anion Gap 19 mmol/L (10-20); BUN (Urea Nitrogen) 12 mg/dL (8.9-20.6); Calc. Creatinine Clearance 79 mL/min (70-130); Calcium 8.3 mg/dL (7.8-10.44); Carbon Dioxide 9 mmol/L (22-29); Chloride 115 mmol/L (98-107); Estimated GFR-MDRD 66; Glucose 227 mg/dL (70-105); Potassium 4.2 mmol/L (3.5-5.1); Sodium 139 mmol/L (136-145)
--- NOTE | 2018-01-05 00:24 | HP ---
DATE OF ADMISSION: 01/04/2018 PRIMARY CARE PHYSICIAN: Meera Hernandez. CHIEF COMPLAINT: DKA. HISTORY OF PRESENT ILLNESS: A 27-year-old male with a known history of type 1 diabetes who presents with nausea, vomiting, and hyperglycemia after having missed doses of Lantus. He was found to have DKA in the ER. At the time of my evaluation, the patient is in the IMCU. He has been already placed on an insulin drip with IV fluids. The patient states that he overall feels much better. He thinks that he overslept after working overtime, and therefore missed his Lantus dose at home. He states that his shifts had recently changed to include more shifts and longer shifts and he denies any recent otherwise changes or misses in his home regimen. REVIEW OF SYSTEMS: As per HPI. Constitutional: No recent fevers or chills or significant weight loss or gain. HEENT: No new headaches, dizziness, or lightheadedness. No changes in vision. Cardiovascular: Denies any overt chest pain, chest pressure, left-sided arm numbness or tingling or episodes of diaphoresis or nausea. Respiratory: Denies any shortness of breath, new cough , or symptoms consistent with upper respiratory infection such as postnasal drip or ear pain. Gastrointestinal: Patient denies any overt nausea, vomiting , abdominal pain. States that he has chronic diarrhea, which is grossly unchanged. Genitourinary: Denies any new dysuria or change in his urinary frequency, quantity or color. Musculoskeletal: Denies any new arthralgias or myalgias. Remainder of review of systems, otherwise negative. PAST MEDICAL HISTORY: As per above. Type 1 diabetes with a prior history of DKA, last episode of DKA in 09/2017. PAST SURGICAL HISTORY: No prior past surgical history. HOME MEDICATIONS: Include promethazine, lisinopril, and both Lantus 40 units subcutaneously b.i.d. and a sliding scale a.c. and at bedtime, insulin dosing. ALLERGIES: CODEINE. SOCIAL HISTORY: Works as a cnc machinist. Denies any alcohol, tobacco, or illicit drug use. PHYSICAL EXAMINATION: VITAL SIGNS: Temperature 98.8, pulse 118, respirations 20, satting 100% on room air, blood pressure 94/63. GENERAL: Patient is awake, alert, appropriate, in no acute distress, lying in the hospital. HEENT: Normocephalic, atraumatic, slightly dry mucous membranes. Equal ocular motions are intact. CARDIOVASCULAR: S1, S2. No murmurs, rubs, or gallops. Pulses 2+ bilateral upper extremity. Trace pitting pedal edema of the right lower extremity, which patient states is close to his baseline. No pitting pedal edema of the left lower extremity. ABDOMEN: Positive bowel sounds, soft, nontender to palpation. MUSCULOSKELETAL: Moving all 4 extremities. RESPIRATORY: Reasonable air movement. No wheezes, rales, or rhonchi. LABORATORY DATA AND IMAGING: WBC 10.4, hemoglobin 14.6, hematocrit 48.9, platelets 260. VBG: pH 7.172. BMP: Sodium 136, potassium 4.9, chloride 105, bicarb less than 8, BUN 14, creatinine 1.7, glucose 384, calcium 9.9, phosphorus 4.0, magnesium 1.8. Total bilirubin 0.7, AST 15, ALT 25, alkaline phosphatase 111, total protein 8.3, albumin 4.6, lipase 13. UA is significant for ketones and glucose. Beta hydroxybutyrate 9.19. On 01/04/2018, chest x-ray , impression " no acute findings." ASSESSMENT AND PLAN: A 27-year-old male with a known history of type 1 diabetes , coming in with nausea, vomiting, and hyperglycemia after having missed his home Lantus dosing. 1. Diabetic ketoacidosis, currently on insulin protocol in the IMCU. We will closely monitor with BMP q.4 hours. Likely etiology of diabetic ketoacidosis in this type 1 diabetic patient who is insulin-dependent is failure to self- administer his home Lantus. 2. Acute kidney injury likely from volume depletion. We will closely monitor urine output. The patient already has serial BMPs ordered. Diet: Currently n.p.o. Activity: As tolerated. DVT prophylaxis with heparin secondary to acute kidney injury. Thank you for asking me to care for the patient. Questions or concerns, please contact me at [facility]. JORDY
[2018-01-05] MEDS: D5 1/2 NS w/20 mEq KCL 1,000 ML IV PRN ×2 (02:03→06:13)
[2018-01-05 03:35] LABS: Anion Gap 9 mmol/L (10-20); BUN (Urea Nitrogen) 10 mg/dL (8.9-20.6); Calc. Creatinine Clearance 79 mL/min (70-130); Calcium 8.6 mg/dL (7.8-10.44); Carbon Dioxide 17 mmol/L (22-29); Chloride 116 mmol/L (98-107); Estimated GFR-MDRD 66; Glucose 229 mg/dL (70-105); Potassium 3.9 mmol/L (3.5-5.1); Sodium 138 mmol/L (136-145)
[2018-01-05 07:36] LABS: Anion Gap 9 mmol/L (10-20); BUN (Urea Nitrogen) 8 mg/dL (8.9-20.6); Calc. Creatinine Clearance 94 mL/min (70-130); Calcium 8.4 mg/dL (7.8-10.44); Carbon Dioxide 16 mmol/L (22-29); Chloride 117 mmol/L (98-107); Estimated GFR-MDRD 80; Glucose 121 mg/dL (70-105); Potassium 3.9 mmol/L (3.5-5.1); Sodium 138 mmol/L (136-145)
[2018-01-05] MEDS ORDERED: Non-Formulary Item 1 EACH (Insulin Glargine,Hum.Rec.Anlog 20 UNIT) SQ SCH (09:00)
[2018-01-05] MEDS: Sodium Chloride 0.9% 1,000 ML IV SCH ×2 (09:20→22:09)
[2018-01-05] MEDS: Insulin Detemir 100 UNITS/ML 20 UNITS in Pre-Filled Syringe 1 EACH SC SCH ×2 (09:20→20:39)
--- NOTE | 2018-01-05 09:20 | PDOC.PN ---
- Subjective Encounter Start Date: 01/05/18 Encounter Start Time: 08:00 Subjective: awake and oriented, feels better -: has a bit of nasal congestion -: no cough or expectoration or urinary freq/urgency/abd pain - Objective Resuscitation Status: Resuscitation Status FULL:Full Resuscitation MAR Reviewed: Yes Vital Signs & Weight: Vital Signs (12 hours) Temp Pulse Resp BP Pulse Ox 01/05/18 08:00 98.0 F 87 17 98 01/05/18 07:37 98.0 F 87 17 91/55 L 98 01/05/18 00:00 99.1 F 106 H 18 97/46 L 97 01/04/18 22:30 98.8 F 110 H 20 94/63 100 01/04/18 21:50 98.8 F 108 H 20 112/64 100 Weight Weight 144 lb 12.8 oz I&O: 01/04/18 01/05/18 01/06/18 06:59 06:59 06:59 Intake Total 2317 Output Total 1150 Balance 1167 Result Diagrams: 01/04/18 19:10 01/05/18 07:09 Additional Labs: Accuchecks 01/05/18 01/05/18 01/05/18 07:56 07:15 06:03 POC Glucose 99 112 H 137 H 01/05/18 01/05/18 01/05/18 05:06 04:05 03:06 POC Glucose 158 H 198 H 200 H 01/05/18 01/05/18 01/05/18 02:06 01:18 00:02 POC Glucose 208 H 211 H 237 H 01/04/18 01/04/18 01/04/18 23:05 22:10 21:02 POC Glucose 208 H 217 H 256 H Phys Exam - Physical Examination HEENT: PERRLA, moist MMs Neck: no JVD, supple Respiratory: no wheezing, no rales Cardiovascular: RRR, no significant murmur Gastrointestinal: soft, non-tender, no distention, positive bowel sounds Musculoskeletal: no edema, pulses present Neurological: non-focal, moves all 4 limbs Psychiatric: normal affect, A&O x 3 Dx/Plan (1) DKA (diabetic ketoacidoses) Code(s): E13.10 - OTH DIABETES MELLITUS WITH KETOACIDOSIS WITHOUT COMA Status : Acute Qualifiers: Diabetes mellitus type: type 1 (2) DM type 1 (diabetes mellitus, type 1) Status: Chronic Qualifiers: Diabetes mellitus complication status: with unspecified complications Qualified Code(s): E10.8 - Type 1 diabetes mellitus with unspecified complications (3) Dehydration Code(s): E86.0 - DEHYDRATION Status: Acute Comment: resolving - Plan empiric levaquin for sinus congestion, no other active infection -: tx to med floor -: continue iv NS for 2 more liters @ 100mls/hr -: levemir 20u bid with coverage -: dc plan in am, oral diet * . Review of Systems - Medications/Allergies Allergies/Adverse Reactions: Allergies Allergy/AdvReac Type Severity Reaction Status Date / Time codeine Allergy Verified 10/15/17 04:00 Medications: Current Medications Sodium Chloride (Normal Saline 0.9%) 1,000 mls @ 75 mls/hr IV .[id number] NADEEM Insulin Detemir 20 units/ (Miscellaneous Medication) 0.2 mls @ 0 mls/hr SC BID NADEEM Sodium Chloride (Flush - Normal Saline) 10 ml IVF Q12HR NADEEM Sodium Chloride (Flush - Normal Saline) 10 ml IVF PRN PRN PRN Reason: Saline Flush
[2018-01-06 06:04] LABS: Anion Gap 11 mmol/L (10-20); BUN (Urea Nitrogen) 6 mg/dL (8.9-20.6); Calc. Creatinine Clearance 107 mL/min (70-130); Calcium 8.6 mg/dL (7.8-10.44); Carbon Dioxide 20 mmol/L (22-29); Chloride 112 mmol/L (98-107); Estimated GFR-MDRD Greater than 90; Glucose 217 mg/dL (70-105); Potassium 3.7 mmol/L (3.5-5.1); Sodium 139 mmol/L (136-145)
[2018-01-06] MEDS: Insulin Detemir 100 UNITS/ML 20 UNITS in Pre-Filled Syringe 1 EACH SC SCH (08:53)
[2018-01-06] MEDS ORDERED: Dextrose 5% in Water 1,000 ML IV PRN (11:55)
[2018-01-06] MEDS ORDERED: HumaLOG 300 UNITS/3 ML VIAL SC PRN (11:55)
[2018-01-06] MEDS ORDERED: Dextrose 50% Abboject 50 ML SYRINGE IVP PRN (11:55)
[2018-01-06] MEDS: Sodium Chloride 0.9% 1,000 ML IV SCH (13:15)
[2018-01-06 17:27] VITALS: BP 127/88; TEMP 97.2
--- NOTE | 2018-01-06 17:42 | DIS ---
DATE OF ADMISSION: 01/04/2018 DATE OF DISCHARGE: 01/06/2018 ADMITTING DIAGNOSIS: Acute diabetic ketoacidosis. DISCHARGE DIAGNOSIS: Acute diabetic ketoacidosis. SECONDARY DIAGNOSES: 1. Acute sinusitis. 2. Acute kidney injury. 3. Severe dehydration. HISTORY OF PRESENT ILLNESS AND HOSPITAL COURSE: In brief, this is a 27-year-old white male with a kn own history of type 1 diabetes mellitus who presents with a missed dose of Lantus and was in a DKA. The patient was placed in ICU for insulin drip per DKA protocol. The patient was monitored closely a nd he was having some congestion in the nose and patient was started on levofloxacin and this was con tinued at the time of discharge to continue for 5 more days. The patient was stable. He came out of DKA in 12 hours and the patient was continued on the home dose of Lantus. The patient was stable on the day of discharge, his vomiting has resolved. His abdominal pain is resolved. His hydration has been improved. PHYSICAL EXAMINATION: On date of discharge: VITAL SIGNS: Blood pressures are 117/76, heart rate is 85, respiration is 18, saturation is 98%. GENERAL: The patient is moderately built, moderately nourished. CARDIOVASCULAR: S1, S2 normal. No murmurs, rubs or gallops. LUNGS: Bilateral air entry was equal. No wheezing, no crackles. ABDOMEN: Soft, nontender, no guarding, no rebound tenderness. HOME MEDICATIONS: 1. Insulin. The patient takes a.c. and at bedtime per sliding scale. 2. Insulin Glargine. The patient is 40 units subcu b.i.d. 3. Lisinopril 2.5 mg p.o. daily. 4. Phenergan for nausea 12.5 mg p.o. daily and the new medication is levofloxacin 500 mg, continue f or 5 more days. DISCHARGE INSTRUCTIONS: Continue activity as tolerated. Advised to follow up with primary care phys ician in 1-2 weeks. Advised to be compliant on his insulin. I have spent 35 minutes with this patient.
--- NOTE | 2018-02-04 15:05 | EKG ---
Test Reason : DKA Blood Pressure : / mmHG Vent. Rate : 118 BPM Atrial Rate : 118 BPM P-R Int : 154 ms QRS Dur : 086 ms QT Int : 332 ms P-R-T Axes : 084 083 050 degrees QTc Int : 465 ms Sinus tachycardia Possible Left atrial enlargement Borderline ECG Confirmed by JOHN MARCANO ([id number]), editor greeting card AUBREY CHOU ([id number]) on 02/04/2018 3:04:59 PM Referred By: Confirmed By:JOHN MARCANO
== END 2018-01-06 17:30 | disposition home or self-care (01) | DRG 638 ==
LOC: ERS 18:45 → IMCU/EMU 20:27 → T4-A 01-05 23:04
PROVIDERS: ADMIT Internal Medicine Infectious Disease; ATTEND Internal Medicine Infectious Disease
DX: E10.10 Type 1 diabetes mellitus with ketoacidosis without coma (principal); N17.9 Acute kidney failure, unspecified; Z72.0 Tobacco use; Z88.5 Allergy status to narcotic agent; Z79.4 Long term (current) use of insulin; E83.39 Other disorders of phosphorus metabolism; E87.6 Hypokalemia; E86.0 Dehydration; J01.90 Acute sinusitis, unspecified; T38.3X6A Underdosing of insulin and oral hypoglycemic [antidiabetic] drugs, initial encounter; Z91.138 Patient's unintentional underdosing of medication regimen for other reason; Y92.009 Unspecified place in unspecified non-institutional (private) residence as the place of occurrence of the external cause
CPT/HCPCS: 36415; 36416; 71045; 80048; 80053; 81003; 82010; 82330; 82803; 83690; 83735; 84100; 85025; 93005; 96361; 96365; 96366; 96374; 96375; 96376; J1815; J2270; J2405; J7050

== ENCOUNTER 2018-03-14 17:58 | Inpatient (IN) | payer BC ==
[~2018-03-14 17:58] MED LIST: ISOVUE-370 76%-LOCM 1 ML ONE
[2018-03-14 18:26] LABS: #Basophils 0.1 thou/uL (0.0-0.2); #Eosinphils 0.1 thou/uL (0.0-0.7); #Lymphocytes 1.2 thou/uL (1.20-3.40); #Monocytes 0.3 thou/uL (0.11-0.59); #Neutrophils 12.9 thou/uL (1.40-6.50); %Basophils 0.4 % (0.0-1.0); %Eosinophils 0.5 % (0.0-10.0); %Lymphocytes 7.9 % (21.0-51.0); %Monocytes 2.4 % (0.0-10.0); %Neutrophils 88.8 % (42.0-75.0); Hemoglobin 17.7 g/dL (14.0-18.0); Mean Corpuscular HGB CONC 35.3 g/dL (32.0-36.0); Mean Corpuscular Hemoglobin 30.5 pg (27.0-31.0); Mean Corpuscular Volume 86.4 fl (80.0-94.0); Mean Platelet Volume 6.9 fL (7.4-10.4); Platelet Count 278 thou/uL (130-400); RBC Distribution Width 11.5 % (11.5-14.5); Red Blood Cell (RBC) Count 5.82 mill/uL (4.70-6.10); White Blood Cell (WBC) Count 14.5 thou/uL (4.8-10.8)
[2018-03-14 18:41] LABS: ALT (SGPT) 24 U/L (8-55); AST (SGOT) 16 U/L (5-34); Albumin 4.7 g/dL (3.5-5.0); Alkaline Phosphatase 115 U/L (40-150); BUN (Urea Nitrogen) 16 mg/dL (8.9-20.6); Bilirubin, Total 1.2 mg/dL (0.2-1.2); Calc. Creatinine Clearance 0 mL/min (70-130); Calcium 10.3 mg/dL (7.8-10.44); Chloride 97 mmol/L (98-107); Estimated GFR-MDRD 41; Globulin 4.2 g/dL (2.4-3.5); Glucose 500 mg/dL (70-105); Lipase 12 U/L (8-78); Magnesium 1.8 mg/dL (1.6-2.6); Protein, Total 8.9 g/dL (6.0-8.3); Sodium 132 mmol/L (136-145)
[2018-03-14] MEDS ORDERED: Ondansetron ODT 4 MG TAB ONE (18:41)
[2018-03-14] MEDS ORDERED: Morphine 4 MG/ML VIAL ONE (18:41)
[2018-03-14 18:44] LABS: Carbon Dioxide Less than 8 mmol/L (22-29)
--- NOTE | 2018-03-14 18:58 | RAD ---
FRONTAL VIEW CHEST: INDICATIONS: Diabetic ketoacidosis. COMPARISON: 01/04/2018 FINDINGS: The lungs are clear. No effusion or pneumothorax. The cardiac silhouette is within normal limits in size. IMPRESSION: No focal consolidation. POS: ERNESTOH
[2018-03-14] MEDS ORDERED: Insulin Regular 100 units/100 ml in NS IVPB SCH (19:00)
[2018-03-14] MEDS ORDERED: Insulin Regular 300 UNITS/3 ML VIAL ONE (19:35)
[2018-03-14 19:36] LABS: Base Excess-Venous -18.8 mmol/L (0 (+/- 2.5)); Bicarbonate (HCO3v) 8.4 mmol/L (1.0-85.0); CO2 Tension (PvCO2) 24.6 mmHg (41.0-51.0); Hemoglobin - Calc 16.3 g/dL (12.0-18.0); O2 Tension (PvO2) 46.9 mmHg (35.0-45.0); Potassium 5.7 mmol/L (3.4-4.7); T. Carbon Dioxide 9.2 mmol/L (1.0-85.0); pH (Venous) 7.142 (7.35-7.45); vO2 Saturation-calc 70.6 % (94-98)
--- NOTE | 2018-03-14 19:49 | PDOC.FPRHP ---
- History of Present Illness Chief Complaint: Abdominal pain History of Present Illness: 27 yo M w/hx of DM1 with recent admission for DKA here with complaint of new onset abd pain w/associated n/v for the past 12 hours. He denies associated fever, chills, bloody stool. He complains of chronic watery diarrhea that has not been worked up previously. He states that he had decreased appetite starting yesterday and is concerned that maybe his insulin went bad after being left in the heat. He typically takes 20u Lantus BID with a sliding scale short acting based on counting carbs. His last A1c was reportedly around 11. In the ED today there was concern for possible infection due to slight WBC elevation. CXR was negative. Blood Cx were drawn. UA pending - Allergies/Adverse Reactions Allergies Allergy/AdvReac Type Severity Reaction Status Date / Time codeine Allergy Verified 10/15/17 04:00 - Home Medications Medication Instructions Recorded Confirmed Type Insulin Glargine,Hum.Rec.Anlog 20 unit SQ BID 09/03/16 01/04/18 History [Lantus Solostar] Lisinopril 2.5 mg PO DAILY 09/05/16 01/04/18 History Insulin Aspart [NovoLOG] 0 unit SC ACHS PRN 02/17/17 01/04/18 History Promethazine [Phenergan] 12.5 mg PO Q6HR PRN 01/04/18 01/04/18 History - History PMHx: DM1 PSHx: None FHx: Paternal grandfather with HTN Social: Smokeless tobacco Denies etoh or recreational drugs - Review of Systems General: reports: weight/appetite/sleep changes (Decreased appetite). denies: fever/chills Eyes: denies: vision changes ENT: denies: nasal congestion Respiratory: denies: cough, congestion, shortness of breath Cardiovascular: reports: chest pain (Complains of L chest pain that does not radiate) Gastrointestinal: reports: nausea, vomiting, diarrhea (Chronic and unchaged). denies: GI bleeding Genitourinary: denies: dysuria, polyuria Skin: denies: rashes, lesions Musculoskeletal: denies: pain, tenderness Neurological: denies: numbness, syncope Psychological: denies: anxiety, depression - Vital signs BP: 142 HR: 129 RR: 22 Tmax: 97.9 Pox: 99% on RA Wt: 68 kg - Physical Exam Constitutional: NAD, awake, alert and oriented HEENT: normocephalic and atraumatic, PERRLA, EOMI, grossly normal vision, grossly normal hearing Neck: FROM, trachea midline Chest: no-tender to palpation Heart: RRR, normal S1/S2 Lungs: CTAB, no respiratory distress Abdomen: soft -Abdomen: TTP LLQ and RLQ Musculoskeletal: normal structure, normal tone Neurological: no focal deficit, CN II-XII intact Heme/Lymphatic: no unusual bruising or bleeding Psychiatric: normal mood and affect, good judgment and insight, intact recent and remote memory FMR H&P: Results - Labs Result Diagrams: 03/14/18 18:20 03/14/18 18:20 Lab results: WBC 14.5 thou/uL (4.8-10.8) H 03/14/18 18:20 Hgb 17.7 g/dL (14.0-18.0) 03/14/18 18:20 Hct 50.3 % (42.0-52.0) 03/14/18 18:20 MCV 86.4 fl (80.0-94.0) 03/14/18 18:20 Plt Count 278 thou/uL (130-400) 03/14/18 18:20 Neutrophils % 88.8 % (42.0-75.0) H 03/14/18 18:20 VBG pCO2 24.6 mmHg (41.0-51.0) L 03/14/18 19:34 VBG pO2 46.9 mmHg (35.0-45.0) H 03/14/18 19:34 Sodium 132 mmol/L (136-145) L 03/14/18 18:20 Potassium 5.0 mmol/L (3.5-5.1) 03/14/18 18:20 Chloride 97 mmol/L (98-107) L 03/14/18 18:20 Carbon Dioxide Less than 8 mmol/L (22-29) L* 03/14/18 18:20 BUN 16 mg/dL (8.9-20.6) 03/14/18 18:20 Creatinine 2.00 mg/dL (0.6-1.3) H 03/14/18 18:20 Glucose 500 mg/dL (70-105) H 03/14/18 18:20 Lactic Acid 3.9 mmol/L (0.5-2.2) H 03/14/18 18:21 Calcium 10.3 mg/dL (7.8-10.44) 03/14/18 18:20 Total Bilirubin 1.2 mg/dL (0.2-1.2) 03/14/18 18:20 AST 16 U/L (5-34) 03/14/18 18:20 ALT 24 U/L (8-55) 03/14/18 18:20 Alkaline Phosphatase 115 U/L (40-150) 03/14/18 18:20 Serum Total Protein 8.9 g/dL (6.0-8.3) H 03/14/18 18:20 Albumin 4.7 g/dL (3.5-5.0) 03/14/18 18:20 Lipase 12 U/L (8-78) 03/14/18 18:20 - EKG Interpretation EKG: Sinus tach, no ST changes, possible peaked T waves - Radiology Interpretation Chest x-ray Status: report reviewed by me (No acute pathology) FMR H&P: A/P - Problem List (1) DKA (diabetic ketoacidoses) Current Visit: Yes Status: Acute Priority: High Code(s): E13.10 - OTH DIABETES MELLITUS WITH KETOACIDOSIS WITHOUT COMA Qualifiers: Diabetes mellitus type: type 1 (2) CANELO (acute kidney injury) Current Visit: Yes Status: Acute Priority: Medium Code(s): N17.9 - ACUTE KIDNEY FAILURE, UNSPECIFIED (3) Hyperkalemia Current Visit: Yes Status: Acute Priority: Medium Code(s): E87.5 - HYPERKALEMIA (4) HTN (hypertension) Current Visit: Yes Status: Acute Priority: Medium Code(s): I10 - ESSENTIAL (PRIMARY) HYPERTENSION (5) Tachycardia Current Visit: Yes Status: Acute Priority: Medium Code(s): R00.0 - TACHYCARDIA, UNSPECIFIED (6) Abdominal pain Current Visit: Yes Status: Acute Priority: High Code(s): R10.9 - UNSPECIFIED ABDOMINAL PAIN Qualifiers: Abdominal location: right lower quadrant Qualified Code(s): R10.31 - Right lower quadrant pain (7) Diarrhea Current Visit: Yes Status: Chronic Priority: Low Code(s): R19.7 - DIARRHEA , UNSPECIFIED (8) Nausea and vomiting Current Visit: Yes Status: Acute Priority: Medium Code(s): R11.2 - NAUSEA WITH VOMITING, UNSPECIFIED (9) Diabetes type 1, uncontrolled Current Visit: Yes Status: Chronic Priority: High Code(s): E10.65 - TYPE 1 DIABETES MELLITUS WITH HYPERGLYCEMIA Qualifiers: Diabetes mellitus complication status: with ketoacidosis Diabetes mellitus complication detail: without coma Qualified Code(s): E10.10 - Type 1 diabetes mellitus with ketoacidosis without coma (10) Atypical chest pain Current Visit: Yes Status: Acute Priority: High Code(s): R07.89 - OTHER CHEST PAIN - Plan DKA - admit to IMCU w/DKA protocol. Insulin drip, q4 BMP, q1 accucheck, NPO until gap closes, IVF - electrolyte replacement protocol - likely related to insulin being left in heat, will monitor for signs of infection Atypical Chest pain - unclear source. CXR negative, EKG shows no ST changes. Will order cardiac enzymes and monitor in IMCU. Abdominal pain w/chronic diarrhea - CT abdomen w/oral contrast to r/o infection - possible inflammatory bowel syndrome vs colitis DM1 - Restart home insulin when DKA resolves Hyperkalemia - 2/2 dehydration and DKA. Monitor q4 BMP as above. I expect this to improve dramatically with insulin drip Tachycardia - 2/2 dehydration. Monitor in IMCU, IVF per DKA protocol CANELO - possibly superimposed on CKD. IVF and q4 BMP as above - avoid nephrotoxins HTN - 2/2 pain. Pt apparently does not have chronic HTN. Monitor vitals and add HTN meds if indicated PPx SCD Diet NPO until DKA resolves then low carb Code Full Dispo: Pt is stable, but will need to be monitored in IMCU. Likely length of stay 3 days. FMR H&P: Upper Level - Pertinent history Date and time of exam: 03/14/18 at 19:25 27 year old white male with PMH DM1 and frequent episodes of DKA presents for nausea and vomiting starting today. He has been fatigues since yesterday. He also reports some abdominal pain and chest pain. Denies fevers, chills, SOB, cough, dysuria, polyuria, hematochezia, melena. 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 - Pertinent findings Vital Signs BP 105/54 Temp 97.9 HR 124 RR 22 O2 sats 100% on room air Physical Exam General: Ill appearing but nontoxic. AAOx4 Eyes: EOMI, PERRL, nonicteric ENT: MMM, oropharynx clear CV: Tachycardic, regular rhythm. No murmurs, rubs, or gallops. Pulses full and equal in all 4 extremities Resp: CTA-B. No wheezing, rales, or rhonchi. Slightly increased work of breathing Abdomen: Tender in LLQ and RLQ. Nondistended. No guarding or rebound Ext: No edema. Equal movements bilaterally Skin: No rash or ulcer. No palpable lesions Neuro: CN II-XII. No focal deficits Psych: Mood and affect appropriate. Judgment and insight intact. - Plan Date/Time: 03/14/181947 I, Maxi Bonilla DO, have evaluated this patient and agree with findings/plan as outlined by summer intern resident. Pertinent changes/additions are listed here. A/P: 27 yo white male with PMH DM1 presents with: 1) Diabetic ketoacidosis - Admit to IMCU. Start insulin drip and IV fluids. Serial BMPs. Monitor potassium, anion gap, and urine output 2) Abdominal pain - Likely 2/[address] abdomen and pelvis ordered. 3) DM1 - Plan as listed above 4) Code status - Full Attending Addendum - Attending Addendum Date/Time: 03/14/182145 I personally evaluated the patient and discussed the management with Dr. Jang I agree with the History, Examination, Assessment and Plan documented above with any addition or exceptions noted below.Juvenile onset diabetic with possible DKA precipitant r/o GI pathology recent abdoninal pain and diarrhea, lipase negative for abdominal CT , Chest pain atypical verse medication Lantus/ novolog ineffective due to heat exposure
[2018-03-14 20:24] LABS: Troponin I Less than 0.010 ng/mL (< 0.028)
[2018-03-14] MEDS ORDERED: NS 0.9% w/ 20 MEQ KCL 1,000 ML IV PRN ×2 (21:27)
[2018-03-14] MEDS ORDERED: CCU Electrolyte Replacement 1 EACH IVPB SCH (21:27)
[2018-03-14] MEDS ORDERED: Ondansetron ODT 4 MG TAB PO PRN (21:27)
[2018-03-14] MEDS ORDERED: Acetaminophen 325 MG TAB PO PRN (21:27)
[2018-03-14] MEDS ORDERED: Dextrose 5 %-0.45 % NaCl 1,000 ML IV PRN (21:27)
[2018-03-14] MEDS ORDERED: Sodium Chloride 0.9% 1,000 ML IV PRN ×4 (21:27)
[2018-03-14] MEDS ORDERED: Potassium Phosphate 15 MMOL in Sodium Chloride 0.9% 250 ML 250 ML IV PRN (21:33)
[2018-03-14] MEDS ORDERED: Potassium Chloride 40 MEQ in Premix Bag 1 BAG IVPB PRN (21:33)
[2018-03-14] MEDS ORDERED: Magnesium 2 GM/NS 0.9% 100 ML 2 GM in Premix Bag 1 BAG IVPB PRN (21:33)
[2018-03-14] MEDS ORDERED: Potassium Phosphate 12 MMOL in Sodium Chloride 0.9% 250 ML 250 ML IV PRN (21:33)
[2018-03-14] MEDS ORDERED: Magnesium Oxide 400 MG TAB PO PRN ×2 (21:33)
[2018-03-14] MEDS ORDERED: CCU ELECTROLYTE REPLACEMENT PROTOCOL FS PRN (21:33)
[2018-03-14] MEDS ORDERED: Potassium Phosphate 9 MMOL in Sodium Chloride 0.9% 100 ML IVPB PRN (21:33)
[2018-03-14] MEDS ORDERED: Potassium Chloride 20 MEQ TAB PO PRN (21:33)
[2018-03-14] MEDS ORDERED: Potassium Chloride 40 MEQ in Sodium Chloride 0.9% 250 ML 250 ML IVPB PRN (21:33)
[2018-03-14 21:41] VITALS: BMI 20.1
[2018-03-14 22:05] LABS: Anion Gap 25 mmol/L (10-20); BUN (Urea Nitrogen) 15 mg/dL (8.9-20.6); Calc. Creatinine Clearance 59 mL/min (70-130); Calcium 9.1 mg/dL (7.8-10.44); Chloride 106 mmol/L (98-107); Estimated GFR-MDRD 49; Glucose 308 mg/dL (70-105); Potassium 4.1 mmol/L (3.5-5.1); Sodium 136 mmol/L (136-145)
[2018-03-14 22:10] LABS: Carbon Dioxide 9 mmol/L (22-29)
[2018-03-14 22:22] LABS: Lactic Acid 2.4 mmol/L (0.5-2.2)
[2018-03-15] MEDS: D5 1/2 NS w/20 mEq KCL 1,000 ML IV PRN ×4 (00:29→12:24)
[2018-03-15 01:49] LABS: Anion Gap 14 mmol/L (10-20); BUN (Urea Nitrogen) 13 mg/dL (8.9-20.6); Calc. Creatinine Clearance 73 mL/min (70-130); Calcium 8.8 mg/dL (7.8-10.44); Carbon Dioxide 14 mmol/L (22-29); Chloride 113 mmol/L (98-107); Estimated GFR-MDRD 62; Glucose 159 mg/dL (70-105); Potassium 3.9 mmol/L (3.5-5.1); Sodium 137 mmol/L (136-145)
[2018-03-15 03:50] LABS: Bilirubin Moderate (Negative); Blood, Urine Negative (Negative); Clarity CLEAR (Clear); Glucose, Urine (Dipstick) >=1000 mg/dL (Negative); Leukocyte Negative (Negative); Nitrite Negative (Negative); Protein, Urine (Dipstick) Trace mg/dL (Neg-Trace); Urobilinogen 0.2 mg/dL (0.2-1.0); pH, Urine 5.5 (5.0-9.0)
[2018-03-15 05:32] LABS: Anion Gap 10 mmol/L (10-20); BUN (Urea Nitrogen) 11 mg/dL (8.9-20.6); Calc. Creatinine Clearance 78 mL/min (70-130); Calcium 8.6 mg/dL (7.8-10.44); Carbon Dioxide 17 mmol/L (22-29); Chloride 112 mmol/L (98-107); Estimated GFR-MDRD 67; Glucose 189 mg/dL (70-105); Sodium 135 mmol/L (136-145)
[2018-03-15 06:50] LABS: Anion Gap 10 mmol/L (10-20); BUN (Urea Nitrogen) 10 mg/dL (8.9-20.6); Calc. Creatinine Clearance 78 mL/min (70-130); Calcium 8.6 mg/dL (7.8-10.44); Carbon Dioxide 17 mmol/L (22-29); Chloride 112 mmol/L (98-107); Estimated GFR-MDRD 67; Glucose 192 mg/dL (70-105); Potassium 4.1 mmol/L (3.5-5.1); Sodium 135 mmol/L (136-145)
--- NOTE | 2018-03-15 07:09 | PDOC.FM ---
- Subjective Subjective: Patient doing well this AM. No significant overnight events. Patient's abdominal pain has resolved. Discussed patient's chronic diarrhea. He has a link trainer mechanic that he sees. He has had imaging and scopes done that ruled out IBD. He has no concerns regarding his chronic diarrhea currently. Patient denies shortness of breath, chest pain, or swelling. - Objective MAR Reviewed: Yes Vital Signs & Weight: Vital Signs (12 hours) Temp Pulse Resp BP Pulse Ox 03/14/18 22:00 98.5 F 119 H 16 99 03/14/18 21:20 98.5 F 119 H 16 123/73 100 Weight Weight 63.639 kg I&O: 03/14/18 03/15/18 03/16/18 06:59 06:59 06:59 Intake Total 2541 Output Total 780 Balance 1761 Result Diagrams: 03/14/18 18:20 03/15/18 05:42 EKG Reviewed by me: Yes Radiology Reviewed by me: Yes <Dawna Evans - Last Filed: 03/15/18 07:46> - Objective Vital Signs & Weight: Vital Signs (12 hours) Temp Pulse Resp BP BP Pulse Ox 03/15/18 07:27 98.2 F 94 15 91/46 L 98 03/15/18 04:00 98.6 F 105 H 16 102/56 L 99 03/15/18 00:00 99.2 F 109 H 16 98/44 L 99 Weight Weight 63.639 kg I&O: 03/14/18 03/15/18 03/16/18 06:59 06:59 06:59 Intake Total 2795 254 Output Total 780 Balance 2015 254 Result Diagrams: 03/14/18 18:20 03/15/18 05:42 <Fabian Ellis - Last Filed: 03/15/18 10:28> Phys Exam - Physical Examination Constitutional: NAD HEENT: PERRLA, moist MMs Neck: supple Respiratory: no wheezing, clear to auscultation bilateral Cardiovascular: RRR, no significant murmur Gastrointestinal: soft, non-tender, no distention, positive bowel sounds Musculoskeletal: no edema, pulses present Neurological: non-focal, moves all 4 limbs Psychiatric: A&O x 3 Skin: no rash, normal turgor, cap refill <2 seconds <Dawna Evans - Last Filed: 03/15/18 07:46> Dx/Plan (1) DKA (diabetic ketoacidoses) Code(s): E13.10 - OTH DIABETES MELLITUS WITH KETOACIDOSIS WITHOUT COMA Status : Acute QualifierTitle: Diabetes mellitus type: type 1 (2) Abdominal pain Code(s): R10.9 - UNSPECIFIED ABDOMINAL PAIN Status: Acute QualifierTitle: Abdominal location: right lower quadrant Qualified Code(s ): R10.31 - Right lower quadrant pain (3) CANELO (acute kidney injury) Code(s): N17.9 - ACUTE KIDNEY FAILURE, UNSPECIFIED Status: Acute (4) Diabetes type 1, uncontrolled Code(s): E10.65 - TYPE 1 DIABETES MELLITUS WITH HYPERGLYCEMIA Status: Chronic QualifierTitle: Diabetes mellitus complication status: with ketoacidosis Diabetes mellitus complication detail: without coma Qualified Code(s): E10.10 - Type 1 diabetes mellitus with ketoacidosis without coma (5) Diarrhea Code(s): R19.7 - DIARRHEA, UNSPECIFIED Status: Chronic - Plan Plan: DKA - admit to IMCU w/DKA protocol. Insulin drip, q4 BMP, q1 accucheck, NPO until gap closes, IVF - electrolyte replacement protocol - likely related to insulin being left in heat, will monitor for signs of infection - once gap closes and bicarb >18, will transition to home insulin regimen and start diet Atypical Chest pain - unclear source - CXR negative - EKG shows no ST changes - cardiac enzymes negative Abdominal pain w/chronic diarrhea - Pt has link trainer mechanic he sees - He has had imaging and scopes done that ruled out IBD - He has no concerns at current visit DM1 - restart home insulin when DKA resolves Hyperkalemia, resolved - 2/2 dehydration and DKA - monitor q4 BMP as above Tachycardia - likely 2/2 dehydration - monitor in IMCU - IVF per DKA protocol CANELO - possibly superimposed on CKD - IVF and q4 BMP as above - avoid nephrotoxins HTN - 2/2 pain - Pt apparently does not have chronic HTN - Monitor vitals and add HTN meds if indicated PPx: SCDs Diet: NPO until DKA resolves, then low carb Code Full Dispo: Pt is stable, but will need to be monitored in IMCU. Likely length of stay 3 days. Will transition over to CC diet and home insulin regimen once bicarcb >18 and anion gap closed. <Dawna Evans - Last Filed: 03/15/18 07:46> (1) DKA (diabetic ketoacidoses) Code(s): E13.10 - OTH DIABETES MELLITUS WITH KETOACIDOSIS WITHOUT COMA Status : Acute Qualifiers: Diabetes mellitus type: type 1 (2) CANELO (acute kidney injury) Code(s): N17.9 - ACUTE KIDNEY FAILURE, UNSPECIFIED Status: Acute (3) Hyperkalemia Code(s): E87.5 - HYPERKALEMIA Status: Acute (4) HTN (hypertension) Code(s): I10 - ESSENTIAL (PRIMARY) HYPERTENSION Status: Acute (5) Tachycardia Code(s): R00.0 - TACHYCARDIA, UNSPECIFIED Status: Acute (6) Abdominal pain Code(s): R10.9 - UNSPECIFIED ABDOMINAL PAIN Status: Acute Qualifiers: Abdominal location: right lower quadrant Qualified Code(s): R10.31 - Right lower quadrant pain (7) Diarrhea Code(s): R19.7 - DIARRHEA, UNSPECIFIED Status: Chronic (8) Nausea and vomiting Code(s): R11.2 - NAUSEA WITH VOMITING, UNSPECIFIED Status: Acute (9) Diabetes type 1, uncontrolled Code(s): E10.65 - TYPE 1 DIABETES MELLITUS WITH HYPERGLYCEMIA Status: Chronic Qualifiers: Diabetes mellitus complication status: with ketoacidosis Diabetes mellitus complication detail: without coma Qualified Code(s): E10.10 - Type 1 diabetes mellitus with ketoacidosis without coma (10) Atypical chest pain Code(s): R07.89 - OTHER CHEST PAIN Status: Acute <Fabian Ellis - Last Filed: 03/15/18 10:28> Attending Addendum - Attending Addendum Date/Time: 03/15/18 1025 I personally evaluated the patient and discussed the management with Dr. Evans I agree with the History, Examination, Assessment and Plan documented above with any addition or exceptions noted below. Anion gap closing Potassium stable at present. Additional history of prior GI consultation with negative finding on previous colonoscopy.Will cancel further radiation exposure for imaging at this time patient is improved. <Fabian Ellis - Last Filed: 03/15/18 10:28>
[2018-03-15 10:53] LABS: Anion Gap 11 mmol/L (10-20); BUN (Urea Nitrogen) 8 mg/dL (8.9-20.6); Calc. Creatinine Clearance 86 mL/min (70-130); Calcium 8.3 mg/dL (7.8-10.44); Carbon Dioxide 18 mmol/L (22-29); Chloride 111 mmol/L (98-107); Estimated GFR-MDRD 75; Glucose 163 mg/dL (70-105); Potassium 3.9 mmol/L (3.5-5.1); Sodium 136 mmol/L (136-145)
[2018-03-15] MEDS ORDERED: HumaLOG 300 UNITS/3 ML VIAL SC PRN (14:43)
[2018-03-15] MEDS ORDERED: Dextrose 50% Abboject 50 ML SYRINGE SLOW IVP PRN (14:43)
[2018-03-15] MEDS ORDERED: Dextrose 5% in Water 1,000 ML IV PRN (14:43)
[2018-03-15] MEDS ORDERED: Insulin Glargine 15 UNITS in Pre-Filled Syringe 1 EACH SC SCH (15:00)
[2018-03-15] MEDS: 1/2 NS w/KCL 20 mEq 1,000 ML IV SCH (15:07)
--- NOTE | 2018-03-15 15:22 | CON ---
DATE OF CONSULTATION: 03/15/2018 SERVICE: Pulmonary Medicine. REASON FOR CONSULTATION: IMCU patient. HISTORY OF PRESENT ILLNESS: The patient is a 27-year-old white male with past medical history significant for type 1 diabetes mellitus. He typically takes Lantus 20 units twice daily and 10 units subcutaneous insulin prior to meals based on his carb count. He was in his usual state of health when he went to work in the morning. It was hot outside. He believes that the increased heat degraded his insulin. He was taking his insulin through the day, but he started developing increasing nausea and difficulties with vomiting. He presented to the Emergency Department as this is characteristic of his prior exacerbations of diabetic ketoacidosis. He was not having any infectious prodrome. He denies having any cough, congestion, fevers, chills, abdominal pain, diarrhea, dysuria, rashes, or arthralgias prior to his presentation. Overnight, he was put on insulin drip. He is actually feeling much better and has a voracious appetite at this point. PAST MEDICAL HISTORY: Type 1 diabetes mellitus. PAST SURGICAL HISTORY: None. SOCIAL HISTORY: Negative for alcohol or illicit drug use. He has no exposure to chemicals, dust asbestos or tuberculosis. He uses nicotine, but does not smoke. FAMILY HISTORY: Noncontributory. ALLERGIES: CODEINE. MEDICATIONS: List of his inpatient medications were reviewed and modified. REVIEW OF SYSTEMS: General, head, ears, eyes, nose, throat, cardiovascular, respiratory, GI, , musculoskeletal, neurologic and skin is negative except as mentioned in the HPI. PHYSICAL EXAMINATION: VITAL SIGNS: Afebrile, pulse 85, blood pressure 91/58, respirations 16, saturation 97% on room air. GENERAL: The patient is awake and alert, in no apparent distress. LUNGS: Excellent air entry with no prolonged expiratory phase, wheezing, rhonchi or crackles. HEART: Normal rate and regular. ABDOMEN: Soft, nontender, and nondistended. Bowel sounds are positive. MUSCULOSKELETAL: No cyanosis or clubbing. There is no pitting in the bilateral lower extremities. NEUROLOGIC: Grossly nonfocal. LABORATORY DATA: WBC 14.5, hemoglobin 17.7, and platelets 278,000. PH 7.14, pCO2 25 on VBG. Creatinine 1.17, which is down trending from 2.0. Bicarb has improved to 18. Anion gap has completely resolved. Basic metabolic profile is otherwise unremarkable. Liver function studies were unremarkable on presentation. Cardiac enzymes were negative. Lactate was originally 3.9, but has cleared to 2.4. Urinalysis is positive for glycosuria and ketonuria. Beta hydroxybutyric acid was 11.4. Blood cultures x2 and urine culture negative to date. IMAGING DATA: Chest x-ray demonstrates no acute cardiopulmonary abnormality. ASSESSMENT: 1. Diabetic ketoacidosis, resolved. 2. Acute kidney injury, resolved. PLAN: The patient's anion gap is closed. He continues to have an acidosis from the crystalloid that we were giving him. I will deescalate his IV fluids and get him converted back over to his subcu insulin. From my perspective, he is stable for transition out of IMCU to the medical unit. We will survey for signs of infection, but none currently exist. 70 minutes have been devoted to this patient in various activities. I personally reviewed all imaging studies and laboratory data noted within this document. For fifty percent of this time, I was interacting with the patient at the bedside or coordinating care with the care team. For the remainder of the time I was immediately available to the patient in the hospital unit. JORDY
[2018-03-15] MEDS: HumaLOG 300 UNITS/3 ML VIAL SC SCH (17:25)
--- NOTE | 2018-03-15 20:27 | CT ---
CT OF ABDOMEN AND PELVIS WITH CONTRAST: Indication: Diffuse abdominal pain. Reference made to 09-05-16. FINDINGS: The bowel is not reliably characterized. It is not opacified by enteric contrast. There is marked dis tention of the urinary bladder which displaces pelvic structures. No acute abnormality of the solid a bdominal viscera. Moderate distention of the gallbladder is seen. No pneumoperitoneum or ascites. The imaged lung bases reveal no lobar consolidation. No acute osseous pathology. IMPRESSION: 1. Marked distention of the urinary bladder, correlate clinically. This displaces bowel within the lo w abdomen/pelvis which along with absence of enteric contrast precludes reliable assessment of the daniel wel of the lower abdomen, notably the appendix. Portions of the appendix are likely visualized, conta ining air, although portions are not visualized. There is nonspecific hazy density of low abdominal f at, bilaterally, nonspecific and age indeterminate. Clinical correlation is essential. 2. Additional details as described above. POS: [facility]
[2018-03-15] MEDS: Insulin Glargine 15 UNITS in Pre-Filled Syringe 1 EACH SC SCH (21:09)
[2018-03-16] MEDS: 1/2 NS w/KCL 20 mEq 1,000 ML IV SCH (04:12)
[2018-03-16 04:26] LABS: Anion Gap 8 mmol/L (10-20); BUN (Urea Nitrogen) 5 mg/dL (8.9-20.6); Calc. Creatinine Clearance 110 mL/min (70-130); Calcium 8.6 mg/dL (7.8-10.44); Carbon Dioxide 21 mmol/L (22-29); Chloride 113 mmol/L (98-107); Estimated GFR-MDRD Greater than 90; Glucose 138 mg/dL (70-105); Potassium 3.6 mmol/L (3.5-5.1); Sodium 138 mmol/L (136-145)
--- NOTE | 2018-03-16 06:17 | PDOC.FM ---
- Subjective Subjective: Patient doing well this AM. No significant overnight events. Patient denies abdominal pain, chest pain, shortness of breath or palpitations. He was transitioned back to SC insulin yesterday and is tolerating PO intake. - Objective MAR Reviewed: Yes Vital Signs & Weight: Vital Signs (12 hours) Temp Pulse Resp BP Pulse Ox 03/16/18 03:00 98.0 F 76 16 98/67 100 03/16/18 00:00 98.8 F 79 16 91/58 L 98 03/15/18 20:00 97.8 F 88 14 03/15/18 19:00 88 14 108/77 98 Weight Weight 63.639 kg I&O: 03/14/18 03/15/18 03/16/18 06:59 06:59 06:59 Intake Total 2795 3362.8 Output Total 780 1550 Balance 2014 1812.8 Result Diagrams: 03/14/18 18:20 03/16/18 03:42 EKG Reviewed by me: No Radiology Reviewed by me: Yes Phys Exam - Physical Examination Constitutional: NAD HEENT: moist MMs, sclera anicteric Neck: supple, full ROM Respiratory: no wheezing, no rales, clear to auscultation bilateral Cardiovascular: RRR, no significant murmur Gastrointestinal: soft, non-tender, no distention Musculoskeletal: no edema, pulses present Neurological: non-focal, normal sensation, moves all 4 limbs Psychiatric: normal affect, A&O x 3 Skin: no rash, normal turgor, cap refill <2 seconds Dx/Plan (1) DKA (diabetic ketoacidoses) Code(s): E13.10 - OTH DIABETES MELLITUS WITH KETOACIDOSIS WITHOUT COMA Status : Acute Qualifiers: Diabetes mellitus type: type 1 (2) Abdominal pain Code(s): R10.9 - UNSPECIFIED ABDOMINAL PAIN Status: Acute Qualifiers: Abdominal location: right lower quadrant Qualified Code(s): R10.31 - Right lower quadrant pain (3) CANELO (acute kidney injury) Code(s): N17.9 - ACUTE KIDNEY FAILURE, UNSPECIFIED Status: Acute (4) Diabetes type 1, uncontrolled Code(s): E10.65 - TYPE 1 DIABETES MELLITUS WITH HYPERGLYCEMIA Status: Chronic Qualifiers: Diabetes mellitus complication status: with ketoacidosis Diabetes mellitus complication detail: without coma Qualified Code(s): E10.10 - Type 1 diabetes mellitus with ketoacidosis without coma (5) Diarrhea Code(s): R19.7 - DIARRHEA, UNSPECIFIED Status: Chronic - Plan Plan: DKA, resolved - patient transitioned to home SC insulin regimen and started on CC diet - electrolyte replacement protocol - ACHS accuchecks Atypical Chest pain, resolved - unclear source - CXR negative - EKG shows no ST changes - cardiac enzymes negative - likely related to DKA Abdominal pain w/chronic diarrhea - 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 - He has had imaging and scopes done that ruled out IBD - He has no concerns at current visit DM1 - home insulin regimen restarted - pt counseled on how to store insulin - pt reports last HgA1c was 11 Hyperkalemia, resolved - 2/2 dehydration and DKA - monitor BMP - replace as necessary Tachycardia, resolved - likely 2/2 dehydration - monitor in IMCU - IVF per DKA protocol CANELO, resolved - possibly superimposed on CKD - mild fluid resuscitation - avoid nephrotoxins Elevated BP reading without diagnosis of HTN, resolved - 2/2 pain - Pt apparently does not have chronic HTN - BP 98/67 this AM PPx: SCDs Diet: ADA diet Code Full Dispo: Pt stable for transition to the floor. Pt back on home insulin regimen and doing well. Possible d/c home.
[2018-03-16] MEDS: Insulin Glargine 15 UNITS in Pre-Filled Syringe 1 EACH SC SCH (08:18)
[2018-03-16] MEDS: HumaLOG 300 UNITS/3 ML VIAL SC SCH ×2 (08:18→11:15)
[2018-03-16 11:21] VITALS: BP 102/67; TEMP 98.5
--- NOTE | 2018-03-16 13:42 | CON ---
DATE OF CONSULTATION: 03/16/2018 HISTORY OF PRESENT ILLNESS: Mr. Bueno is a type 1 diabetic who was admitted with DKA. This is resolved. He says he feels back to his baseline. He thinks his insulin got too hot in his truck which led to decreased effectiveness of his insulin and resultant DKA. He says he feels back to his baseline. He has been hospitalized before with DKA. He was here 3 times in 2017 and hospitalized in 2016 as well. He also has a history of asthma, but this has not been an issue for quite some time. PAST HISTORY: Non Contributory. MEDICATIONS: He takes lisinopril and his insulin. FAMILY HISTORY: Positive for colon cancer. SOCIAL HISTORY: He is nonsmoker, nondrinker, he does not use drugs. FAMILY HISTORY: Negative for lung disease at an early age. REVIEW OF SYSTEMS: 10 point review otherwise negative. PHYSICAL EXAMINATION: GENERAL: He is in no distress. VITAL SIGNS: Afebrile, heart rate 80, respiratory rate is 15, oximetry is 99 on room air, blood pressure 102/67. HEAD AND NECK: Unremarkable. LUNGS: Clear. HEART: Regular rhythm. S1 and S2 are normal. ABDOMEN: Soft and nontender. EXTREMITIES: Without clubbing, cyanosis, or edema. IMPRESSION: 1. Status post diabetic ketoacidosis. 2. History of asthma, not a clinical issue. I think he is stable for discharge. This is a 50 minute consult with greater than 50% of the time spent on the unit with coordination of care. JORDY
--- NOTE | 2018-03-16 16:01 | ADD-PRG ---
DATE OF SERVICE: 03/16/2018 This is an addendum to the note of Dr. Dawna Evans. Mr. Bueno is a pleasant 27-year-old type 1 diabetic, admitted in diabetic ketoacidosis. He was treat ed appropriately and his diabetic ketoacidosis has subsequently resolved. He is awake and alert and tolerating a normal diet. If he tolerates lunch, we can likely discharge him immediately following.
--- NOTE | 2018-03-16 16:33 | DIS-2 ---
DATE OF ADMISSION: 03/14/2018 DATE OF DISCHARGE: 03/16/2018 ADMITTING ATTENDING: Dr. Fabian Ellis. DISCHARGE ATTENDING: Dr. Piero Short. RESIDENT: Dr. Dawna Evans. CONSULTS: Pulmonology, Dr. Tee and Dr. Nielsen. PROCEDURES: 1. Chest x-ray: No focal consolidations. 2. Abdomen and pelvis CT shows distention of the urinary bladder. PRIMARY DIAGNOSES: 1. Diabetic ketoacidosis. 2. Acute kidney injury. 3. Hypokalemia. 4. Elevated blood pressure without diagnosis of hypertension. 5. Tachycardia. 6. Abdominal pain. 7. Chronic diarrhea. SECONDARY DIAGNOSES: Diabetes mellitus type 1, uncontrolled. DISCHARGE MEDICATIONS: 1. Insulin glargine 20 units subcu twice daily. 2. Lisinopril 2.5 mg oral daily. 3. Insulin aspart, the patient takes according to carbohydrate at each meal. 4. Promethazine 12.5 mg oral every 6 hours as needed. DISCONTINUED MEDICATIONS: None. HISTORY OF PRESENT ILLNESS AND HOSPITAL COURSE: This is a 27-year-old male with a history of diabete s mellitus type 1 with recent admission for DKA, here with complaint of new onset abdominal pain with associated nausea and vomiting for the past 12 hours. He denied any associated fever, chills or blo tamika stools. The patient complained of chronic watery diarrhea that has been worked up previously by a surgical services manager. He has had several images and colonoscopies done to rule out inflammatory saskia l disease. The patient states that he had decreased appetite starting yesterday and is concerned jonelle t his insulin went bad after being left in the heat while at work. The patient typically takes 20 un its of Lantus b.i.d. with sliding scale short-acting based on carb counting. The patient's last A1c was reportedly 11 a few months ago when he presented to his seat scooper machine's office. They made saran ral changes at that time to help with better diabetes control. In the Emergency Department, there wa s concern for possible infection contributing to diabetic ketoacidosis as there is a slight white blo od cell elevation. A chest x-ray was negative, and blood and urine cultures were drawn, all of which were negative prior to the patient's discharge from the hospital. The patient remained stable throughout the course of his hospital stay. On admission, his bicarb was undetectable and he had a pH of 7.142 based on VBG. The patient was started on the DKA protocol and his anion gap slowly closed. His bicarbonate moses to 21 and the insulin drip was discontinued. The patient was given subcutaneous insulin as well as a consistent carb diet. He was tolerating p.o. fi ne. The patient's blood glucose levels averaged between 100s and 170s after getting off the insulin drip. The patient states that he had recent changes to his medication regimen after hemoglobin A1c o f 11, was found at his last visit with seat scooper machine. Since that time, his blood glucose has been better controlled. However, he has been leaving his insulin out in the heat and is uncertain of whet her or not it has really been effective. The patient's abdominal pain completely resolved of the . He is having no difficulties with nausea or vomiting, and he was not tender to palpation . It is recommended that the patient keep his insulin in an ice chest while at work. Additionally, we discussed potentially getting an insulin pump to avoid these episodes in the future. The patient xavier s have an seat scooper machine, he sees in [place], so he can discuss this with his seat scooper machine at the next visit. There is no indication of any infection during this hospitalization that contributed to his DKA. The patient was advised to watch for signs and symptoms of infection and return for further evaluation should those arise. DISPOSITION: Stable. DISCHARGE INSTRUCTIONS: 1. Location: Home. 2. Diet: Consistent carbohydrates. 3. Activity: As tolerated. 4. Followup: The patient is to follow up with his primary care physician within 7 days of discharge to ensure resolution and improvement in symptoms. Additionally, the patient is to follow as sched ed with his seat scooper machine in [place] for further treatment of his diabetes.
== END 2018-03-16 13:10 | disposition home or self-care (01) | DRG 682 ==
LOC: ERS 17:58 → IMCU/EMU 21:19
PROVIDERS: ADMIT Family Medicine; ATTEND Family Medicine
DX: N17.9 Acute kidney failure, unspecified (principal); E10.10 Type 1 diabetes mellitus with ketoacidosis without coma; E86.0 Dehydration; E87.6 Hypokalemia; R03.0 Elevated blood-pressure reading, without diagnosis of hypertension; R00.0 Tachycardia, unspecified; K52.9 Noninfective gastroenteritis and colitis, unspecified; N32.89 Other specified disorders of bladder; Z79.4 Long term (current) use of insulin; E87.5 Hyperkalemia; D72.829 Elevated white blood cell count, unspecified
CPT/HCPCS: 36415; 36416; 71045; 74177; 80048; 80053; 81003; 82010; 82330; 82553; 82803; 83605; 83690; 83735; 84484; 85025; 87040; 87086; 93005; 96361; 96365; 96366; 96375; 96376; J1815; J2270; J7050; Q0162